=== PATIENT | female | born 1970 | race Caucasian/White ===

== ENCOUNTER → 2018-03-21 | Outpatient (CLI) | payer BC ==
--- NOTE | 2018-03-21 14:41 | KCIC ---
Bilateral diagnostic digital mammograms: Reason for examination: Right axillary lump. Comparison is made to previous studies dated 11/04/2014 and 02/26/2013 and previous left breast ultrasound dated 02/26/2013. Interpretation was made with the benefit of CAD. The skin and nipples show no abnormalities. No abnormal axillary lymph nodes are seen. The breast parenchyma is extremely dense. (Breast density: Category D.) There appears to be some new nodularity at the 12:00 B position of the left breast. In the area of clinical concern, a definite nodule is not seen but the breast parenchyma is extremely dense and a nodule could be obscured. Further evaluation with ultrasound will follow. There are no other dominant masses, suspicious calcifications or architectural distortion. Impression: Extremely dense breast parenchyma with no definite abnormality seen in the area of clinical concern however at nodule could be obscured by the dense parenchyma. New nodular density is suggested however at the 12:00 B position of the left breast. Bilateral ultrasound to follow. Your patient's mammogram demonstrates that she has dense breast tissue (breast density category C or D), which could hide abnormalities, and if she has other risk factors for breast cancer that have been identified, she might benefit from supplemental screening tests that may be suggested by you as her ordering physician. Dense breast tissue, in and of itself, is a relatively common condition. Therefore, this information is not provided to cause undue concern, but rather to raise your awareness and to promote discussion with your patient regarding the presence of other risk factors, in addition to dense breast tissue. Your patient's mammography results will be sent to her. BI-RAD Category 0: Incomplete. Needs additional imaging evaluation. Bilateral breast ultrasound: Comparison is made to previous left breast ultrasound dated 02/26/2013. Ultrasound examination was performed of the right breast in area of clinical concern and at the right axilla and in the left breast superiorly in the area of mammographic concern and at the left axilla. In the right breast at the 10:00 position 7 cm from the nipple, there is a hypoechoic slightly heterogeneous nodule measuring approximately 1.1 x 1.7 cm in greatest dimension. Further evaluation with biopsy is recommended. No other focal nodules are seen. No abnormal appearing lymph nodes are seen. In the left breast at the 12:00 position 4 cm from the nipple, there is a new 1.3 cm hypoechoic nodule. Further evaluation with biopsy is recommended. No other focal nodules are seen. No abnormal appearing lymph nodes are seen in the left axilla. IMPRESSION: 1.7 x 1.1 cm nodule at the 10:00 position 7 cm from the nipple in the right breast. 1.3 cm nodule at the 12:00 position of the left breast 4 cm from the nipple. Recommend ultrasound guided biopsies of both of these lesions. BI-RADS Category 4: Suspicious. These findings have been discussed with the patient and the patient's physician, Dr. Lizeth Malcolm, was notified with this report at 2:30 PM on 03/21/2018. "Our facility is accredited by the [employer] Mammography Program." This patient's information has been entered into a reminder system for the patient to be notified with the results of her examination and a target date for the next mammogram. Electronically signed by: Anna Segundo MD (03/21/2018 2:37 PM) [id number]
== END | disposition home or self-care (01) ==
LOC: KCIC MAMMO 12:52
PROVIDERS: ATTEND Family Medicine
DX: N63.11 Unspecified lump in the right breast, upper outer quadrant (principal); N63.21 Unspecified lump in the left breast, upper outer quadrant
CPT/HCPCS: 76641; 77066

== ENCOUNTER 2019-08-01 16:56 | Inpatient (IN) | payer BC ==
[~2019-08-01] VITALS: Ht 157.5 cm; Wt 44.5 kg
[~2019-08-01 16:56] MED LIST: cefOXitin SODIUM IV Push 2 GM VIAL. IVP ONE
--- NOTE | 2019-08-01 17:15 | NUR ---
Admitted to unit as direct admit, came from [facility]. Alert and oriented x's 4. C/o abdominal pain states "3" on scale 0-10. Oriented to room and controls. Side rails up x's 2 with call light in reach. Cont. monitor.
[2019-08-01] MEDS ORDERED: DOCUSATE SODIUM 100 MG CAPSULE. PO PRN (18:15)
[2019-08-01] MEDS ORDERED: ONDANSETRON PF 4 MG/2 ML VIAL. IV PRN (18:15)
[2019-08-01] MEDS ORDERED: ACETAMINOPHEN 325 MG TABLET. PO PRN (18:15)
[2019-08-01] MEDS ORDERED: ZOLPIDEM 5 MG TABLET. PO PRN (18:15)
--- NOTE | 2019-08-01 18:17 | PDOC1 ---
History and Physical Date of Admission Date of Admission DATE: 08/01/19 TIME: 18:11 Identification/Chief Complaint Chief Complaint abdominal pain Problems: (1) Colonic volvulus Source Source: Patient History of Present Illness History of Present Illness This is a very pleasant 48 year old CF with pmh of ADHD who presents with epigastric abdominal pain since this AM while working. 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 No nausea vomiting diarrhea fever chest pain or sob. no change in dietary habits. only sx was in 2004 when she had a hemorroidectomy. she initally presented from an outside hospital and transferred here after CT showing colonic volvulus. Dr. Ramos aware of patient. patient has no complaints. Past Medical History Past Medical History adhd Past Surgical History Past Surgical History hemorroidectomy Family History Family History reviewed and denies Social History Smoke: No ALCOHOL: none Drugs: None ROS Review of System CONSTITUTIONAL: No fever or chills EYES: No recent changes SKIN: No rash or itching CARDIOVASCULAR: No chest pain, syncope, palpitations, or edema RESPIRATORY: No SOB or cough GASTROINTESTINAL: No nausea, vomiting or abdominal pain NEUROLOGICAL: No headaches or weakness ENDOCRINE: No cold or heat intolerance GENITOURINARY: No urgency or frequency of urination MUSCULOSKELETAL: No back pain or joint pain LYMPHATICS: No enlarged lymph nodes PSYCHIATRIC: No anxiety or depression Physical Exam Physical Exam GENERAL: No apparent distress. Alert and oriented. HEENT: Head normocephalic, atraumatic. NECK: Supple LUNGS: Clear to auscultation. HEART: RRR, S1, S2 present, pulses intact ABDOMEN: Soft, positive bowel sounds. EXTREMITIES: No cyanosis or edema. NEUROLOGIC: Normal speech, normal tone PSYCHIATRIC: Normal affect, normal mood. SKIN: No ulceration. VTE Prophylaxis Ordered VTE Prophylaxis Devices: Yes VTE Pharmacological Prophylaxi: Yes Assessment/Plan Assessment/Plan ASSESSMENT Colonic Volvulus ADHD PLAN admit to non tele bed Gen Sx consulted NPO past midnight CLD tonight IVF in AM till seen by surgery dvt ppx: ambulatory full code RAIZA SANDOVAL MD Aug 01, 2019 18:17
[2019-08-01 19:00] VITALS: BP 103/53
[2019-08-01 20:20] LABS: HEMATOCRIT 36.2 % (36.0-47.0); HEMOGLOBIN 12.7 g/dL (12.0-15.5); RED BLOOD COUNT 3.89 x10^6/uL (3.50-5.40); RED CELL DISTRIBUTION WIDTH 13.2 % (11.5-14.5); WHITE BLOOD COUNT 7.5 x10^3/uL (4.0-11.0)
[2019-08-01] MEDS: IV NORMAL SALINE 1000ML BAG 1,000 ML IV SCH (20:36)
[2019-08-01 20:45] LABS: ALBUMIN 3.9 g/dL (3.4-5.0); ALBUMIN/GLOBULIN RATIO 1.5 (1.0-1.7); CALCIUM 8.7 mg/dL (8.5-10.1); CREATININE 0.7 mg/dL (0.6-1.0); GFR 90.1; POTASSIUM 3.3 mmol/L (3.5-5.1); TOTAL BILIRUBIN 1.1 mg/dL (0.2-1.0); TOTAL PROTEIN 6.5 g/dL (6.4-8.2)
[2019-08-01 23:08] VITALS: BP 106/65
[2019-08-02] VITALS (13 sets, daily range): BP systolic 88–109; BP diastolic 48–71
[2019-08-02] MEDS ORDERED: IV RINGERS,LACTATED 1000ML 1,000 ML IV SCH (07:40)
[2019-08-02] MEDS ORDERED: PROCHLORPERAZINE 10 MG/2 ML VIAL. IV PRN (07:45)
[2019-08-02] MEDS ORDERED: ONDANSETRON PF 4 MG/2 ML VIAL. IV PRN (07:45)
[2019-08-02] MEDS ORDERED: LIDOCAINE 1% PF 2 ML VIAL. ID PRN (07:45)
[2019-08-02] MEDS ORDERED: fentaNYL PF VIAL 100 MCG/2 ML VIAL IV PRN ×2 (07:45)
[2019-08-02] MEDS ORDERED: MORPHINE SULFATE 2 MG/ML VIAL. IV PRN (07:45)
[2019-08-02] MEDS ORDERED: HYDROmorphone 2 MG/ML VIAL IV PRN (07:45)
[2019-08-02] MEDS: POTASSIUM CHLORIDE 10MEQ 100 ML IV SCH ×2 (08:27→09:14)
[2019-08-02] MEDS: IV NORMAL SALINE 1000ML BAG 1,000 ML IV SCH ×2 (08:30→18:45)
[2019-08-02] MEDS: AMPHETAMINE PO SCH (09:00)
--- NOTE | 2019-08-02 10:46 | PDOC ---
PROGRESS NOTES Chief Complaint Chief Complaint ASSESSMENT Colonic Volvulus ADHD Hypokalemia PLAN Gen Sx consulted NPO till seen by sx continue IVF replace lytes dvt ppx: ambulatory full code pending sx eval Vitals Vitals Vital Signs Date Time Temp Pulse Resp B/P (MAP) Pulse Ox O2 Delivery O2 Flow Rate FiO2 08/02/19 08:00 Room Air 08/02/19 07:59 98.3 54 16 95/54 (68) 97 98.3 Labs LABS Laboratory Tests Test 08/01/19 20:10 White Blood Count 7.5 x10^3/uL (4.0-11.0) Red Blood Count 3.89 x10^6/uL (3.50-5.40) Hemoglobin 12.7 g/dL (12.0-15.5) Hematocrit 36.2 % (36.0-47.0) Mean Corpuscular Volume 93 fL (79-100) Mean Corpuscular Hemoglobin 33 pg (25-35) Mean Corpuscular Hemoglobin Concent 35 g/dL (31-37) Red Cell Distribution Width 13.2 % (11.5-14.5) Platelet Count 264 x10^3/uL (140-400) Sodium Level 141 mmol/L (136-145) Potassium Level 3.3 mmol/L (3.5-5.1) Chloride Level 105 mmol/L (98-107) Carbon Dioxide Level 24 mmol/L (21-32) Anion Gap 12 (6-14) Blood Urea Nitrogen 12 mg/dL (7-20) Creatinine 0.7 mg/dL (0.6-1.0) Estimated GFR (Cockcroft-Gault) 90.1 BUN/Creatinine Ratio 17 (6-20) Glucose Level 83 mg/dL (70-99) Calcium Level 8.7 mg/dL (8.5-10.1) Total Bilirubin 1.1 mg/dL (0.2-1.0) Aspartate Amino Transf (AST/SGOT) 23 U/L (15-37) Alanine Aminotransferase (ALT/SGPT) 23 U/L (14-59) Alkaline Phosphatase 51 U/L (46-116) Total Protein 6.5 g/dL (6.4-8.2) Albumin 3.9 g/dL (3.4-5.0) Albumin/Globulin Ratio 1.5 (1.0-1.7) Comment Review of Relevant I have reviewed the following items karson (where applicable) has been applied. Labs Laboratory Tests Test 08/01/19 20:10 White Blood Count 7.5 x10^3/uL (4.0-11.0) Red Blood Count 3.89 x10^6/uL (3.50-5.40) Hemoglobin 12.7 g/dL (12.0-15.5) Hematocrit 36.2 % (36.0-47.0) Mean Corpuscular Volume 93 fL (79-100) Mean Corpuscular Hemoglobin 33 pg (25-35) Mean Corpuscular Hemoglobin Concent 35 g/dL (31-37) Red Cell Distribution Width 13.2 % (11.5-14.5) Platelet Count 264 x10^3/uL (140-400) Sodium Level 141 mmol/L (136-145) Potassium Level 3.3 mmol/L (3.5-5.1) Chloride Level 105 mmol/L (98-107) Carbon Dioxide Level 24 mmol/L (21-32) Anion Gap 12 (6-14) Blood Urea Nitrogen 12 mg/dL (7-20) Creatinine 0.7 mg/dL (0.6-1.0) Estimated GFR (Cockcroft-Gault) 90.1 BUN/Creatinine Ratio 17 (6-20) Glucose Level 83 mg/dL (70-99) Calcium Level 8.7 mg/dL (8.5-10.1) Total Bilirubin 1.1 mg/dL (0.2-1.0) Aspartate Amino Transf (AST/SGOT) 23 U/L (15-37) Alanine Aminotransferase (ALT/SGPT) 23 U/L (14-59) Alkaline Phosphatase 51 U/L (46-116) Total Protein 6.5 g/dL (6.4-8.2) Albumin 3.9 g/dL (3.4-5.0) Albumin/Globulin Ratio 1.5 (1.0-1.7) Laboratory Tests Test 08/01/19 20:10 White Blood Count 7.5 x10^3/uL (4.0-11.0) Red Blood Count 3.89 x10^6/uL (3.50-5.40) Hemoglobin 12.7 g/dL (12.0-15.5) Hematocrit 36.2 % (36.0-47.0) Mean Corpuscular Volume 93 fL (79-100) Mean Corpuscular Hemoglobin 33 pg (25-35) Mean Corpuscular Hemoglobin Concent 35 g/dL (31-37) Red Cell Distribution Width 13.2 % (11.5-14.5) Platelet Count 264 x10^3/uL (140-400) Sodium Level 141 mmol/L (136-145) Potassium Level 3.3 mmol/L (3.5-5.1) Chloride Level 105 mmol/L (98-107) Carbon Dioxide Level 24 mmol/L (21-32) Anion Gap 12 (6-14) Blood Urea Nitrogen 12 mg/dL (7-20) Creatinine 0.7 mg/dL (0.6-1.0) Estimated GFR (Cockcroft-Gault) 90.1 BUN/Creatinine Ratio 17 (6-20) Glucose Level 83 mg/dL (70-99) Calcium Level 8.7 mg/dL (8.5-10.1) Total Bilirubin 1.1 mg/dL (0.2-1.0) Aspartate Amino Transf (AST/SGOT) 23 U/L (15-37) Alanine Aminotransferase (ALT/SGPT) 23 U/L (14-59) Alkaline Phosphatase 51 U/L (46-116) Total Protein 6.5 g/dL (6.4-8.2) Albumin 3.9 g/dL (3.4-5.0) Albumin/Globulin Ratio 1.5 (1.0-1.7) Medications Current Medications Ondansetron HCl (Zofran) 4 mg PRN Q4HRS PRN IV NAUSEA/VOMITING; Start 08/01/19 at 18:15 Zolpidem Tartrate (Ambien) 5 mg PRN QHS PRN PO INSOMNIA; Start 08/01/19 at 18:15 Docusate Sodium (Colace) 100 mg PRN BID PRN PO CONSTIPATION; Start 08/01/19 at 18:15 Acetaminophen (Tylenol) 650 mg PRN Q6HRS PRN PO fever or pain; Start 08/01/19 at 18:15 Non-Formulary Medication 1 ea DAILY PO ; Start 08/02/19 at 09:00; Status UNV Sodium Chloride 1,000 ml @ 75 mls/hr [id number] IV Last administered on 08/02/19at 08:30; Start 08/01/19 at 19:45 Cefoxitin Sodium (Mefoxin) 2 gm 1X PREOP ONCE IVP ; Start 08/01/19 at 08:00; Stop 08/01/19 at 19:47; Status DC Ondansetron HCl (Zofran) 4 mg PRN Q6HRS PRN IV NAUSEA/VOMITING; Start 08/02/19 at 07:45; Stop 08/03/19 at 07:44 Fentanyl Citrate (Fentanyl 2ml Vial) 25 mcg PRN Q5MIN PRN IV MILD PAIN 1-3; Start 08/02/19 at 07:45; Stop 08/03/19 at 07:44 Fentanyl Citrate (Fentanyl 2ml Vial) 50 mcg PRN Q5MIN PRN IV MODERATE TO SEVERE PAIN; Start 08/02/19 at 07:45; Stop 08/03/19 at 07:44 Morphine Sulfate (Morphine Sulfate) 1 mg PRN Q10MIN PRN IV SEVERE PAIN 7-10; Start 08/02/19 at 07:45; Stop 08/03/19 at 07:44 Ringer's Solution 1,000 ml @ 30 mls/hr Q24H IV ; Start 08/02/19 at 07:40; Stop 08/02/19 at 19:39 Lidocaine HCl (Xylocaine-Mpf 1% 2ml Vial) 2 ml PRN 1X PRN ID PRIOR TO IV START; Start 08/02/19 at 07:45; Stop 08/03/19 at 07:44 Hydromorphone HCl (Dilaudid) 0.5 mg PRN Q10MIN PRN IV SEV PAIN, Second choice; Start 08/02/19 at 07:45; Stop 08/03/19 at 07:44 Prochlorperazine Edisylate (Compazine) 5 mg PACU PRN PRN IV NAUSEA, MRX1; Start 08/02/19 at 07:45; Stop 08/03/19 at 07:44 Potassium Chloride/Water 100 ml @ 100 mls/hr Q1H IV Last administered on 08/02/19at 09:14; Start 08/02/19 at 08:00; Stop 08/02/19 at 09:59; Status DC Cefazolin Sodium/ Dextrose 50 ml @ 100 mls/hr 1X PREOP PRN IV PRIOR TO P ROCEDURE; Start 08/02/19 at 08:15 Vitals/I & O Vital Sign - Last 24 Hours 08/01/19 08/01/19 08/01/19 08/01/19 17:25 19:00 19:01 20:00 Temp 97.7 97.7 Pulse 60 Resp 18 B/P (MAP) 103/53 (70) Pulse Ox 100 O2 Delivery Room Air Room Air Room Air Room Air 08/01/19 08/02/19 08/02/19 08/02/19 23:08 04:11 07:59 08:00 Temp 98.4 98.2 98.3 98.4 98.2 98.3 Pulse 72 70 54 Resp 18 18 16 B/P (MAP) 106/65 (79) 88/48 (61) 95/54 (68) Pulse Ox 97 100 97 O2 Delivery Room Air Room Air Room Air Room Air RAIZA SANDOVAL MD Aug 02, 2019 10:46
[2019-08-02] MEDS ORDERED: POLYVINYL ALCOHOL 1.4% OPHTH SOLUTION 15ML BOTTLE. OU PRN (11:00)
--- NOTE | 2019-08-02 11:14 | PDOC2 ---
CONSULT Date of Consult Date of Consult DATE: 08/02/19 TIME: 11:09 Reason for Consult Reason for Consult: Cecal volvulus Referring Physician Referring Physician: Dr. Merritt Identification/Chief Complaint Chief Complaint LUQ pain Source Source: Chart review, Patient History of Present Illness Reason for Visit: 48 yo F with c/o acute onset LUQ pain yesterday. No previous episodes. No previous colonoscopy. Pt denies N/V, but early satiety. No changes in bowel habits. Feels somewhat better today if doesn't move much. Denies f/c. Past Medical History Cardiovascular: No pertinent hx Past Surgical History Past Surgical History: No pertinent history Family History Family History: No Significant Social History No ALCOHOL: none Drugs: None Current Medications Current Medications Current Medications Ondansetron HCl (Zofran) 4 mg PRN Q4HRS PRN IV NAUSEA/VOMITING; Start 08/01/19 at 18:15 Zolpidem Tartrate (Ambien) 5 mg PRN QHS PRN PO INSOMNIA; Start 08/01/19 at 18:15 Docusate Sodium (Colace) 100 mg PRN BID PRN PO CONSTIPATION; Start 08/01/19 at 18:15 Acetaminophen (Tylenol) 650 mg PRN Q6HRS PRN PO fever or pain; Start 08/01/19 at 18:15 Non-Formulary Medication 1 ea DAILY PO ; Start 08/02/19 at 09:00; Status UNV Sodium Chloride 1,000 ml @ 75 mls/hr [id number] IV Last administered on 08/02/19at 08:30; Start 08/01/19 at 19:45 Cefoxitin Sodium (Mefoxin) 2 gm 1X PREOP ONCE IVP ; Start 08/01/19 at 08:00; Stop 08/01/19 at 19:47; Status DC Ondansetron HCl (Zofran) 4 mg PRN Q6HRS PRN IV NAUSEA/VOMITING; Start 08/02/19 at 07:45; Stop 08/03/19 at 07:44 Fentanyl Citrate (Fentanyl 2ml Vial) 25 mcg PRN Q5MIN PRN IV MILD PAIN 1-3; Start 08/02/19 at 07:45; Stop 08/03/19 at 07:44 Fentanyl Citrate (Fentanyl 2ml Vial) 50 mcg PRN Q5MIN PRN IV MODERATE TO SEVERE PAIN; Start 08/02/19 at 07:45; Stop 08/03/19 at 07:44 Morphine Sulfate (Morphine Sulfate) 1 mg PRN Q10MIN PRN IV SEVERE PAIN 7-10; Start 08/02/19 at 07:45; Stop 08/03/19 at 07:44 Ringer's Solution 1,000 ml @ 30 mls/hr Q24H IV ; Start 08/02/19 at 07:40; Stop 08/02/19 at 19:39 Lidocaine HCl (Xylocaine-Mpf 1% 2ml Vial) 2 ml PRN 1X PRN ID PRIOR TO IV START; Start 08/02/19 at 07:45; Stop 08/03/19 at 07:44 Hydromorphone HCl (Dilaudid) 0.5 mg PRN Q10MIN PRN IV SEV PAIN, Second choice; Start 08/02/19 at 07:45; Stop 08/03/19 at 07:44 Prochlorperazine Edisylate (Compazine) 5 mg PACU PRN PRN IV NAUSEA, MRX1; Start 08/02/19 at 07:45; Stop 08/03/19 at 07:44 Potassium Chloride/Water 100 ml @ 100 mls/hr Q1H IV Last administered on 08/02/19at 09:14; Start 08/02/19 at 08:00; Stop 08/02/19 at 09:59; Status DC Cefazolin Sodium/ Dextrose 50 ml @ 100 mls/hr 1X PREOP PRN IV PRIOR TO PROCEDURE; Start 08/02/19 at 08:15 Artificial Tears (Artificial Tears) 1 drop PRN Q15MIN PRN OU DRY EYE; Start 08/02/19 at 11:00 Allergies Allergies: Coded Allergies: No Known Drug Allergies (Unverified , 08/01/19) ROS Gastrointestinal: Yes Abdominal Pain Physical Exam General: Alert, Oriented X3, Cooperative, mild distress HEENT: Atraumatic Lungs: Normal air movement Abdomen: Soft, Other (mild TTP LUQ, no masses) Extremities: No clubbing, No cyanosis Skin: No rashes, No breakdown Neuro: Normal speech, Sensation intact Psych/Mental Status: Mental status NL, Mood NL Vitals VITALS Vital Signs Date Time Temp Pulse Resp B/P (MAP) Pulse Ox O2 Delivery O2 Flow Rate FiO2 08/02/19 08:00 Room Air 4/25/20 07:59 98.3 54 16 95/54 (68) 97 98.3 Labs Labs Laboratory Tests Test 08/01/19 20:10 White Blood Count 7.5 x10^3/uL (4.0-11.0) Red Blood Count 3.89 x10^6/uL (3.50-5.40) Hemoglobin 12.7 g/dL (12.0-15.5) Hematocrit 36.2 % (36.0-47.0) Mean Corpuscular Volume 93 fL (79-100) Mean Corpuscular Hemoglobin 33 pg (25-35) Mean Corpuscular Hemoglobin Concent 35 g/dL (31-37) Red Cell Distribution Width 13.2 % (11.5-14.5) Platelet Count 264 x10^3/uL (140-400) Sodium Level 141 mmol/L (136-145) Potassium Level 3.3 mmol/L (3.5-5.1) Chloride Level 105 mmol/L (98-107) Carbon Dioxide Level 24 mmol/L (21-32) Anion Gap 12 (6-14) Blood Urea Nitrogen 12 mg/dL (7-20) Creatinine 0.7 mg/dL (0.6-1.0) Estimated GFR (Cockcroft-Gault) 90.1 BUN/Creatinine Ratio 17 (6-20) Glucose Level 83 mg/dL (70-99) Calcium Level 8.7 mg/dL (8.5-10.1) Total Bilirubin 1.1 mg/dL (0.2-1.0) Aspartate Amino Transf (AST/SGOT) 23 U/L (15-37) Alanine Aminotransferase (ALT/SGPT) 23 U/L (14-59) Alkaline Phosphatase 51 U/L (46-116) Total Protein 6.5 g/dL (6.4-8.2) Albumin 3.9 g/dL (3.4-5.0) Albumin/Globulin Ratio 1.5 (1.0-1.7) Laboratory Tests Test 08/01/19 20:10 White Blood Count 7.5 x10^3/uL (4.0-11.0) Red Blood Count 3.89 x10^6/uL (3.50-5.40) Hemoglobin 12.7 g/dL (12.0-15.5) Hematocrit 36.2 % (36.0-47.0) Mean Corpuscular Volume 93 fL (79-100) Mean Corpuscular Hemoglobin 33 pg (25-35) Mean Corpuscular Hemoglobin Concent 35 g/dL (31-37) Red Cell Distribution Width 13.2 % (11.5-14.5) Platelet Count 264 x10^3/uL (140-400) Sodium Level 141 mmol/L (136-145) Potassium Level 3.3 mmol/L (3.5-5.1) Chloride Level 105 mmol/L (98-107) Carbon Dioxide Level 24 mmol/L (21-32) Anion Gap 12 (6-14) Blood Urea Nitrogen 12 mg/dL (7-20) Creatinine 0.7 mg/dL (0.6-1.0) Estimated GFR (Cockcroft-Gault) 90.1 BUN/Creatinine Ratio 17 (6-20) Glucose Level 83 mg/dL (70-99) Calcium Level 8.7 mg/dL (8.5-10.1) Total Bilirubin 1.1 mg/dL (0.2-1.0) Aspartate Amino Transf (AST/SGOT) 23 U/L (15-37) Alanine Aminotransferase (ALT/SGPT) 23 U/L (14-59) Alkaline Phosphatase 51 U/L (46-116) Total Protein 6.5 g/dL (6.4-8.2) Albumin 3.9 g/dL (3.4-5.0) Albumin/Globulin Ratio 1.5 (1.0-1.7) Images Images Outside CT c/w cecal volvulus, no evidence of bowel compromise. Assessment/Plan Assessment/Plan Cecal volvulus will plan laparoscopic versus open ileocolic resection. R/R/B/A d/w pt. Risks, including, but not limited to: bleeding, infection, damage to surrounding structures, risk of anesthesia, risk of open, risk of anastomotic leak, risk of . She appears to understand, her questions are answered and she elects to proceed. Thank you for allowing participation in care of pleasant patient. WILFRID VILLEDA MD Aug 02, 2019 11:14
[2019-08-02] MEDS ORDERED: GLYCOPYRROLATE 1 MG/5 ML VIAL. ONE (13:09)
[2019-08-02] MEDS ORDERED: ROCURONIUM 50 MG/5 ML VIAL. ONE (13:09)
[2019-08-02] MEDS ORDERED: SEVOFLURANE > 120 MINUTES. IH ONE (13:09)
[2019-08-02] MEDS ORDERED: fentaNYL PF VIAL 100 MCG/2 ML VIAL ONE (13:09)
[2019-08-02] MEDS ORDERED: NEOSTIGMINE METHYLSULFATE 5 MG/5 ML SYRINGE. ONE (13:09)
[2019-08-02] MEDS ORDERED: MIDAZOLAM HCL/PF 2 MG/2 ML VIAL. ONE (13:09)
[2019-08-02] MEDS ORDERED: LIDOCAINE 2% PF 5 ML VIAL. ONE (13:10)
[2019-08-02] MEDS ORDERED: PROPOFOL 20 ML IV ONE (13:10)
[2019-08-02] MEDS ORDERED: DEXAMETHASONE SOD PHOS 4 MG/ML VIAL ONE (13:10)
[2019-08-02] MEDS ORDERED: ONDANSETRON PF 4 MG/2 ML VIAL. ONE (13:10)
[2019-08-02] MEDS ORDERED: KETOROLAC 30 MG/ML VIAL. ONE (13:14)
[2019-08-02] MEDS ORDERED: ceFAZolin 2GM PREMIX 2 GM/50 ML BAG IV ONE (14:00)
[2019-08-02] MEDS ORDERED: cefOXitin SODIUM IV Push 2 GM VIAL. IVP ONE (15:54)
[2019-08-02] MEDS ORDERED: SUCCINYLCHOLINE 200 MG/10 ML VIAL. ONE (16:00)
[2019-08-02] MEDS ORDERED: BUPIVACAINE-EPI 0.5%-1:200000 MPF 30 ML VIAL. ONE (16:16)
[2019-08-02] MEDS ORDERED: ONDANSETRON PF 4 MG/2 ML VIAL. IVP PRN (17:30)
[2019-08-02] MEDS ORDERED: NALOXONE 0.4 MG/ML VIAL. IV PRN (17:30)
[2019-08-02] MEDS ORDERED: 0.9 % SODIUM CHLORIDE 10 ML DISP.SYRIN. IV PRN (17:30)
--- NOTE | 2019-08-02 17:38 | PDOC4 ---
OPERATIVE NOTE Date: Date: Aug 02, 2019 Pre-Op Diagnosis: Cecal volvulus Post-Op Diagnosis: same Procedure Performed: laparoscopic ileocolic resection Surgeon: Will Villeda Anesthesia Type: GETA plus local Blood Loss: 50 Specimans Obtained: ileocolic resection Findings: mobile cecum, currently reduced but with inflamed bowel, no perforation Normal liver, gallbladder, small bowel, remaining colon, gynecologic structure, right ureter, pancreas and duodenum Complications: none Operative Note: After obtaining informed consent, patient was taken to OR, induced under GETA and prepped in the usual fashion. 5 mm port placed LLQ, suprapubic and epigastric, all under laparoscopic guidance. Abdominal cavity was explored and noted as above. Brief terminal ileum attachments and hepatic flexure attachments were taken with ligasure. Right colon easily mobilized. Right ureter and duodenum were fully visualized and maintained without injury in this petite patient. No other abnormalities noted. Transverse incision was made in RLQ, wound retractor placed and ileocolic area was eviscerated. Side to side stapled anastomosis created with EDU 75. End was sealed with EDU 75. Mesentery taken with ligasure device. Specimen sent to pathology for evaluation. Mesentery repaired with 3 0 vicryl. Anastomosis noted to be patent, under no tension, completely viable and without leakage. Bowel returned to abdominal cavity. Peritoneum repaired with 0 vicryl. Anterior fascia repaired with 0 PDS. Pneumoperitoneum reestablished and abdominal cavity explored. Copious irrigation. No evidence of bleeding or other pathology. Ports removed without bleeding. Skin repaired with 3 0 vicryl and 4 0 monocryl. Dressing placed. Patient tolerated procedure well and sent to PACU in stable condition. All counts correct. Wound class is 3. WILFRID VILLEDA MD Aug 02, 2019 17:38
--- NOTE | 2019-08-02 17:52 | RAD ---
One view lower abdomen pelvis 5:16 PM HISTORY: Postop colon resection Portable supine AP view abdomen pelvis There is air within multiple loops of bowel. There is some extraluminal air inferiorly and laterally in the pelvis. There is a suture line seen in the left hemipelvis. There is no unexpected radiopaque foreign body identified. IMPRESSION: 1. Nonspecific bowel gas pattern. 2. Air which could be intraperitoneal or retroperitoneal is likely postsurgical. Electronically signed by: Toi Minaya III, MD (08/02/2019 5:50 PM) [id number]
[2019-08-02] MEDS: MORPHINE SULFATE/PF 30 ML IV PRN (18:02)
[2019-08-02] MEDS: IV RINGERS,LACTATED 1000ML 1,000 ML IV SCH ×2 (18:45→23:45)
--- NOTE | 2019-08-02 23:26 | NUR ---
Schedule 1726 LR and NS was not administered at this time due to current LR bag still infusing. LR bag is attached to morphine T[employer] as the carrier. Will continue to monitor pt closely.
[2019-08-03 03:00] VITALS: BP 94/53
[2019-08-03 04:55] LABS: BASO % 0 % (0-3); EOS % 0 % (0-3); HEMATOCRIT 34.3 % (36.0-47.0); HEMOGLOBIN 11.7 g/dL (12.0-15.5); LYMPH % 13 % (24-48); MEAN CORPUSCULAR HEMOGLOBIN 32 pg (25-35); MEAN CORPUSCULAR HGB CONC 34 g/dL (31-37); MEAN CORPUSCULAR VOLUME 95 fL (79-100); MONO # 0.3 x10^3/uL (0.0-1.1); MONO % 4 % (0-9); NEUT # 6.2 x10^3/uL (1.8-7.7); NEUT % 83 % (31-73); PLATELET COUNT 223 x10^3/uL (140-400); RED BLOOD COUNT 3.63 x10^6/uL (3.50-5.40); RED CELL DISTRIBUTION WIDTH 13.1 % (11.5-14.5); WHITE BLOOD COUNT 7.6 x10^3/uL (4.0-11.0)
[2019-08-03 05:11] LABS: CALCIUM 8.4 mg/dL (8.5-10.1); CREATININE 0.6 mg/dL (0.6-1.0); GFR 107.6; POTASSIUM 3.9 mmol/L (3.5-5.1)
[2019-08-03] MEDS: ENOXAPARIN 40 MG/0.4 ML SYRINGE. SQ SCH (05:57)
[2019-08-03] MEDS: AMPHETAMINE PO SCH (07:51)
[2019-08-03 07:59] VITALS: BP 97/61
[2019-08-03] MEDS: IV RINGERS,LACTATED 1000ML 1,000 ML IV SCH ×2 (09:31→19:28)
[2019-08-03 10:50] VITALS: BP 95/48
--- NOTE | 2019-08-03 11:22 | PDOC ---
PROGRESS NOTES Chief Complaint Chief Complaint ASSESSMENT Colonic Volvulus pod # 1 ADHD Hypokalemia PLAN Gen Sx following NPO continue IVF replace lytes dvt ppx: ambulatory full code Date: pod # 1 Date: Aug 02, 2019 Pre-Op Diagnosis: Cecal volvulus Post-Op Diagnosis: same Procedure Performed: laparoscopic ileocolic resection Surgeon: Will Ramos Anesthesia Type: GETA plus local Blood Loss: 50 Specimans Obtained: ileocolic resection Findings: mobile cecum, currently reduced but with inflamed bowel, no perforation Normal liver, gallbladder, small bowel, remaining colon, gynecologic structure, right ureter, pancreas and duodenum Complications: Vitals Vitals Vital Signs Date Time Temp Pulse Resp B/P (MAP) Pulse Ox O2 Delivery O2 Flow Rate FiO2 08/03/19 10:50 98.6 80 18 95/48 (64) 98 Room Air 98.6 08/02/19 17:53 8 Physical Exam General: Alert, Oriented X3, Cooperative, mild distress Lungs: Clear Abdomen: Soft, Other (mild TTP LUQ, no masses) Extremities: No clubbing, No cyanosis Skin: No rashes, No breakdown Labs LABS One view lower abdomen pelvis 5:16 PM HISTORY: Postop colon resection Portable supine AP view abdomen pelvis There is air within multiple loops of bowel. There is some extraluminal air inferiorly and laterally in the pelvis. There is a suture line seen in the left hemipelvis. There is no unexpected radiopaque foreign body identified. IMPRESSION: 1. Nonspecific bowel gas pattern. 2. Air which could be intraperitoneal or retroperitoneal is likely postsurgical. Electronically signed by: Jie Minaya III, MD (08/02/2019 5:50 PM) [id number] DICTATED and SIGNED BY: JIE MINAYA III, MD DATE: 08/02/19 833 Laboratory Tests Test 08/03/19 04:10 White Blood Count 7.6 x10^3/uL (4.0-11.0) Red Blood Count 3.63 x10^6/uL (3.50-5.40) Hemoglobin 11.7 g/dL (12.0-15.5) Hematocrit 34.3 % (36.0-47.0) Mean Corpuscular Volume 95 fL (79-100) Mean Corpuscular Hemoglobin 32 pg (25-35) Mean Corpuscular Hemoglobin Concent 34 g/dL (31-37) Red Cell Distribution Width 13.1 % (11.5-14.5) Platelet Count 223 x10^3/uL (140-400) Neutrophils (%) (Auto) 83 % (31-73) Lymphocytes (%) (Auto) 13 % (24-48) Monocytes (%) (Auto) 4 % (0-9) Eosinophils (%) (Auto) 0 % (0-3) Basophils (%) (Auto) 0 % (0-3) Neutrophils # (Auto) 6.2 x10^3/uL (1.8-7.7) Lymphocytes # (Auto) 1.0 x10^3/uL (1.0-4.8) Monocytes # (Auto) 0.3 x10^3/uL (0.0-1.1) Eosinophils # (Auto) 0.0 x10^3/uL (0.0-0.7) Basophils # (Auto) 0.0 x10^3/uL (0.0-0.2) Sodium Level 140 mmol/L (136-145) Potassium Level 3.9 mmol/L (3.5-5.1) Chloride Level 106 mmol/L (98-107) Carbon Dioxide Level 18 mmol/L (21-32) Anion Gap 16 (6-14) Blood Urea Nitrogen 14 mg/dL (7-20) Creatinine 0.6 mg/dL (0.6-1.0) Estimated GFR (Cockcroft-Gault) 107.6 Glucose Level 83 mg/dL (70-99) Calcium Level 8.4 mg/dL (8.5-10.1) Comment Review of Relevant I have reviewed the following items karson (where applicable) has been applied. Labs Laboratory Tests Test 08/01/19 20:10 08/02/19 11:20 08/03/19 04:10 White Blood Count 7.5 x10^3/uL (4.0-11.0) 7.6 x10^3/uL (4.0-11.0) Red Blood Count 3.89 x10^6/uL (3.50-5.40) 3.63 x10^6/uL (3.50-5.40) Hemoglobin 12.7 g/dL (12.0-15.5) 11.7 g/dL (12.0-15.5) Hematocrit 36.2 % (36.0-47.0) 34.3 % (36.0-47.0) Mean Corpuscular Volume 93 fL (79-100) 95 fL (79-100) Mean Corpuscular Hemoglobin 33 pg (25-35) 32 pg (25-35) Mean Corpuscular Hemoglobin Concent 35 g/dL (31-37) 34 g/dL (31-37) Red Cell Distribution Width 13.2 % (11.5-14.5) 13.1 % (11.5-14.5) Platelet Count 264 x10^3/uL (140-400) 223 x10^3/uL (140-400) Sodium Level 141 mmol/L (136-145) 140 mmol/L (136-145) Potassium Level 3.3 mmol/L (3.5-5.1) 3.9 mmol/L (3.5-5.1) 3.9 mmol/L (3.5-5.1) Chloride Level 105 mmol/L (98-107) 106 mmol/L (98-107) Carbon Dioxide Level 24 mmol/L (21-32) 18 mmol/L (21-32) Anion Gap 12 (6-14) 16 (6-14) Blood Urea Nitrogen 12 mg/dL (7-20) 14 mg/dL (7-20) Creatinine 0.7 mg/dL (0.6-1.0) 0.6 mg/dL (0.6-1.0) Estimated GFR (Cockcroft-Gault) 90.1 107.6 BUN/Creatinine Ratio 17 (6-20) Glucose Level 83 mg/dL (70-99) 83 mg/dL (70-99) Calcium Level 8.7 mg/dL (8.5-10.1) 8.4 mg/dL (8.5-10.1) Total Bilirubin 1.1 mg/dL (0.2-1.0) Aspartate Amino Transf (AST/SGOT) 23 U/L (15-37) Alanine Aminotransferase (ALT/SGPT) 23 U/L (14-59) Alkaline Phosphatase 51 U/L (46-116) Total Protein 6.5 g/dL (6.4-8.2) Albumin 3.9 g/dL (3.4-5.0) Albumin/Globulin Ratio 1.5 (1.0-1.7) Neutrophils (%) (Auto) 83 % (31-73) Lymphocytes (%) (Auto) 13 % (24-48) Monocytes (%) (Auto) 4 % (0-9) Eosinophils (%) (Auto) 0 % (0-3) Basophils (%) (Auto) 0 % (0-3) Neutrophils # (Auto) 6.2 x10^3/uL (1.8-7.7) Lymphocytes # (Auto) 1.0 x10^3/uL (1.0-4.8) Monocytes # (Auto) 0.3 x10^3/uL (0.0-1.1) Eosinophils # (Auto) 0.0 x10^3/uL (0.0-0.7) Basophils # (Auto) 0.0 x10^3/uL (0.0-0.2) Laboratory Tests Test 08/03/19 04:10 White Blood Count 7.6 x10^3/uL (4.0-11.0) Red Blood Count 3.63 x10^6/uL (3.50-5.40) Hemoglobin 11.7 g/dL (12.0-15.5) Hematocrit 34.3 % (36.0-47.0) Mean Corpuscular Volume 95 fL (79-100) Mean Corpuscular Hemoglobin 32 pg (25-35) Mean Corpuscular Hemoglobin Concent 34 g/dL (31-37) Red Cell Distribution Width 13.1 % (11.5-14.5) Platelet Count 223 x10^3/uL (140-400) Neutrophils (%) (Auto) 83 % (31-73) Lymphocytes (%) (Auto) 13 % (24-48) Monocytes (%) (Auto) 4 % (0-9) Eosinophils (%) (Auto) 0 % (0-3) Basophils (%) (Auto) 0 % (0-3) Neutrophils # (Auto) 6.2 x10^3/uL (1.8-7.7) Lymphocytes # (Auto) 1.0 x10^3/uL (1.0-4.8) Monocytes # (Auto) 0.3 x10^3/uL (0.0-1.1) Eosinophils # (Auto) 0.0 x10^3/uL (0.0-0.7) Basophils # (Auto) 0.0 x10^3/uL (0.0-0.2) Sodium Level 140 mmol/L (136-145) Potassium Level 3.9 mmol/L (3.5-5.1) Chloride Level 106 mmol/L (98-107) Carbon Dioxide Level 18 mmol/L (21-32) Anion Gap 16 (6-14) Blood Urea Nitrogen 14 mg/dL (7-20) Creatinine 0.6 mg/dL (0.6-1.0) Estimated GFR (Cockcroft-Gault) 107.6 Glucose Level 83 mg/dL (70-99) Calcium Level 8.4 mg/dL (8.5-10.1) Medications Current Medications Ondansetron HCl (Zofran) 4 mg PRN Q4HRS PRN IV NAUSEA/VOMITING; Start 08/01/19 at 18:15 Zolpidem Tartrate (Ambien) 5 mg PRN QHS PRN PO INSOMNIA; Start 08/01/19 at 18:15 Docusate Sodium (Colace) 100 mg PRN BID PRN PO CONSTIPATION; Start 08/01/19 at 18:15 Acetaminophen (Tylenol) 650 mg PRN Q6HRS PRN PO fever or pain; Start 08/01/19 at 18:15 Non-Formulary Medication 1 ea DAILY PO ; Start 08/02/19 at 09:00; Status UNV Sodium Chloride 1,000 ml @ 75 mls/hr [id number] IV Last administered on 08/02/19at 08:30; Start 08/01/19 at 19:45; Stop 08/02/19 at 19:30; Status DC Cefoxitin Sodium (Mefoxin) 2 gm 1X PREOP ONCE IVP Last administered on 08/01/19at 15:57; Start 08/01/19 at 08:00; Stop 08/01/19 at 19:47; Status DC Ondansetron HCl (Zofran) 4 mg PRN Q6HRS PRN IV NAUSEA/VOMITING; Start 08/02/19 at 07:45; Stop 08/03/19 at 07:44; Status DC Fentanyl Citrate (Fentanyl 2ml Vial) 25 mcg PRN Q5MIN PRN IV MILD PAIN 1-3; Start 08/02/19 at 07:45; Stop 08/03/19 at 07:44; Status DC Fentanyl Citrate (Fentanyl 2ml Vial) 50 mcg PRN Q5MIN PRN IV MODERATE TO SEVERE PAIN; Start 08/02/19 at 07:45; Stop 08/03/19 at 07:44; Status DC Morphine Sulfate (Morphine Sulfate) 1 mg PRN Q10MIN PRN IV SEVERE PAIN 7-10; Start 08/02/19 at 07:45; Stop 08/03/19 at 07:44; Status DC Ringer's Solution 1,000 ml @ 30 mls/hr Q24H IV ; Start 08/02/19 at 07:40; Stop 08/02/19 at 19:30; Status DC Lidocaine HCl (Xylocaine-Mpf 1% 2ml Vial) 2 ml PRN 1X PRN ID PRIOR TO IV START; Start 08/02/19 at 07:45; Stop 08/03/19 at 07:44; Status DC Hydromorphone HCl (Dilaudid) 0.5 mg PRN Q10MIN PRN IV SEV PAIN, Second choice; Start 08/02/19 at 07:45; Stop 08/03/19 at 07:44; Status DC Prochlorperazine Edisylate (Compazine) 5 mg PACU PRN PRN IV NAUSEA, MRX1; Start 08/02/19 at 07:45; Stop 08/03/19 at 07:44; Status DC Potassium Chloride/Water 100 ml @ 100 mls/hr Q1H IV Last administered on 08/02/19at 09:14; Start 08/02/19 at 08:00; Stop 08/02/19 at 09:59; Status DC Cefazolin Sodium/ Dextrose 50 ml @ 100 mls/hr 1X PREOP PRN IV PRIOR TO PROCE DURE; Start 08/02/19 at 08:15 Artificial Tears (Artificial Tears) 1 drop PRN Q15MIN PRN OU DRY EYE Last administered on 08/02/19at 11:35; Start 08/02/19 at 11:00 Sevoflurane (Ultane) 90 ml STK-MED ONCE IH ; Start 08/02/19 at 13:09; Stop 08/02/19 at 13:09; Status DC Rocuronium [place] (Zemuron) 50 mg STK-MED ONCE .ROUTE ; Start 08/02/19 at 13:09; Stop 08/02/19 at 13:09; Status DC Fentanyl Citrate (Fentanyl 2ml Vial) 100 mcg STK-MED ONCE .ROUTE ; Start 08/02/19 at 13:09; Stop 08/02/19 at 13:09; Status DC Neostigmine [place] (Neostigmine Methylsulfate) 5 mg STK-MED ONCE .ROUTE ; Start 08/02/19 at 13:09; Stop 08/02/19 at 13:10; Status DC Midazolam HCl (Versed) 2 mg STK-MED ONCE .ROUTE ; Start 08/02/19 at 13:09; Stop 08/02/19 at 13:10; Status DC Glycopyrrolate (Robinul) 1 mg STK-MED ONCE .ROUTE ; Start 08/02/19 at 13:09; Stop 08/02/19 at 13:10; Status DC Propofol 20 ml @ As Directed STK-MED ONCE IV ; Start 08/02/19 at 13:10; Stop 08/02/19 at 13:10; Status DC Dexamethasone Sodium Phosphate (Decadron) 4 mg STK-MED ONCE .ROUTE ; Start 08/02/19 at 13:10; Stop 08/02/19 at 13:10; Status DC Ondansetron HCl (Zofran) 4 mg STK-MED ONCE .ROUTE ; Start 08/02/19 at 13:10; Stop 08/02/19 at 13:10; Status DC Lidocaine HCl (Lidocaine Pf 2% Vial) 5 ml STK-MED ONCE .ROUTE ; Start 08/02/19 at 13:10; Stop 08/02/19 at 13:10; Status DC Ketorolac Tromethamine (Toradol 30mg Vial) 30 mg STK-MED ONCE .ROUTE ; Start 08/02/19 at 13:14; Stop 08/02/19 at 13:15; Status DC Cefoxitin Sodium (Mefoxin) 2 gm STK-MED ONCE IVP ; Start 08/02/19 at 15:54; Stop 08/02/19 at 15:54; Status DC Succinylcholine Chloride (Anectine) 200 mg STK-MED ONCE .ROUTE ; Start 08/02/19 at 16:00; Stop 08/02/19 at 16:01; Status DC Bupivacaine HCl/ Epinephrine Bitart (Sensorcain-Epi 0.5%-1:[id number] Mpf) 30 ml STK-MED ONCE .ROUTE Last administered on 08/02/19at 16:18; Start 08/02/19 at 16:16; Stop 08/02/19 at 16:16; Status DC Enoxaparin Sodium (Lovenox 40mg Syringe) 40 mg Q24H SQ Last administered on 08/03/19at 05:57; Start 08/03/19 at 06:00 Sodium Chloride (Normal Saline Flush) 3 ml QSHIFT PRN IV AFTER MEDS AND BLOOD DRAWS; Start 08/02/19 at 17:30 Ringer's Solution 1,000 ml @ 100 mls/hr Q10H IV Last administered on 08/03/19at 09:31; Start 08/02/19 at 17:26 Naloxone HCl (Narcan) 0.4 mg PRN Q2MIN PRN IV SEE INSTRUCTIONS; Start 08/02/19 at 17:30 Sodium Chloride 1,000 ml @ 25 mls/hr Q24H IV ; Start 08/02/19 at 17:26 Morphine Sulfate 30 ml @ 0 mls/hr CONT PRN PRN IV PER PROTOCOL Last administered on 08/02/19at 18:02; Start 08/02/19 at 17:30 Ondansetron HCl (Zofran) 4 mg PRN Q6HRS PRN IVP NAUESA, 1ST CHOICE; Start 08/02/19 at 17:30 Vitals/I & O Vital Sign - Last 24 Hours 08/02/19 08/02/19 08/02/19 08/02/19 11:59 15:26 15:59 17:38 Temp 98.0 99.1 98.1 98.4 98.0 99.1 98.1 98.4 Pulse 56 65 61 72 Resp 16 18 18 14 B/P (MAP) 109/71 (84) 97/66 99/61 (74) 106/58 Pulse Ox 100 100 96 100 O2 Delivery Room Air Room Air Room Air Room Air O2 Flow Rate 8 08/02/19 08/02/19 08/02/19 08/02/19 17:38 17:53 18:02 18:08 Pulse 45 56 Resp 17 18 16 B/P (MAP) 98/62 91/62 Pulse Ox 100 99 98 O2 Delivery Mask Simple Mask Room Air Room Air O2 Flow Rate 8 8 08/02/19 08/02/19 08/02/19 08/02/19 18:09 18:45 19:00 19:00 Temp 97.6 97.6 Pulse 55 55 Resp 16 16 B/P (MAP) 107/55 (72) 101/61 (74) Pulse Ox 96 94 97 O2 Delivery Room Air Room Air Room Air Room Air 08/02/19 08/02/19 08/02/19 08/02/19 19:15 19:30 19:59 20:00 Temp 97.6 97.6 Pulse 56 57 55 Resp 16 16 16 B/P (MAP) 99/60 (73) 99/60 (73) 101/61 (74) Pulse Ox 98 97 98 O2 Delivery Room Air Room Air Room Air Room Air 08/02/19 08/02/19 08/02/19 08/02/19 20:30 21:00 22:00 23:00 Temp 98.0 98.0 Pulse 64 58 80 76 Resp 16 16 16 16 B/P (MAP) 99/63 (75) 104/63 (77) 98/53 (68) 98/53 (68) Pulse Ox 97 96 96 96 O2 Delivery Room Air Room Air Room Air Room Air 08/03/19 08/03/19 08/03/19 08/03/19 03:00 07:59 08:00 10:50 Temp 98.2 97.5 98.6 98.2 97.5 98.6 Pulse 57 54 80 Resp 16 18 18 B/P (MAP) 94/53 (67) 97/61 (73) 95/48 (64) Pulse Ox 98 97 98 O2 Delivery Room Air Room Air Room Air Room Air Intake and Output 08/02/19 08/02/19 08/03/19 14:59 22:59 06:59 Intake Total 965 ml 0 ml Output Total 125 ml Balance 840 ml 0 ml YARELIS MATOS MD Aug 03, 2019 11:22
--- NOTE | 2019-08-03 13:10 | PDOC ---
SURGICAL PROGRESS NOTE Subjective Pt with some RLQ incisional pain, otherwise doing well, no N/V, passing some flatus Vital Signs Vital Signs Date Time Temp Pulse Resp B/P (MAP) Pulse Ox O2 Delivery O2 Flow Rate FiO2 08/03/19 10:50 98.6 80 18 95/48 (64) 98 Room Air 98.6 08/02/19 17:53 8 I&O Intake and Output 08/03/19 07:00 Intake Total 965 ml Output Total 125 ml Balance 840 ml Intake Oral 15 ml IV Total 950 ml Output Urine Total 75 ml Estimated Blood Loss 50 ml General: Alert, Oriented X3, Cooperative, No acute distress Abdomen: Soft, No tenderness Labs Laboratory Tests Test 08/01/19 20:10 08/02/19 11:20 08/03/19 04:10 White Blood Count 7.5 x10^3/uL (4.0-11.0) 7.6 x10^3/uL (4.0-11.0) Red Blood Count 3.89 x10^6/uL (3.50-5.40) 3.63 x10^6/uL (3.50-5.40) Hemoglobin 12.7 g/dL (12.0-15.5) 11.7 g/dL (12.0-15.5) Hematocrit 36.2 % (36.0-47.0) 34.3 % (36.0-47.0) Mean Corpuscular Volume 93 fL (79-100) 95 fL (79-100) Mean Corpuscular Hemoglobin 33 pg (25-35) 32 pg (25-35) Mean Corpuscular Hemoglobin Concent 35 g/dL (31-37) 34 g/dL (31-37) Red Cell Distribution Width 13.2 % (11.5-14.5) 13.1 % (11.5-14.5) Platelet Count 264 x10^3/uL (140-400) 223 x10^3/uL (140-400) Sodium Level 141 mmol/L (136-145) 140 mmol/L (136-145) Potassium Level 3.3 mmol/L (3.5-5.1) 3.9 mmol/L (3.5-5.1) 3.9 mmol/L (3.5-5.1) Chloride Level 105 mmol/L (98-107) 106 mmol/L (98-107) Carbon Dioxide Level 24 mmol/L (21-32) 18 mmol/L (21-32) Anion Gap 12 (6-14) 16 (6-14) Blood Urea Nitrogen 12 mg/dL (7-20) 14 mg/dL (7-20) Creatinine 0.7 mg/dL (0.6-1.0) 0.6 mg/dL (0.6-1.0) Estimated GFR (Cockcroft-Gault) 90.1 107.6 BUN/Creatinine Ratio 17 (6-20) Glucose Level 83 mg/dL (70-99) 83 mg/dL (70-99) Calcium Level 8.7 mg/dL (8.5-10.1) 8.4 mg/dL (8.5-10.1) Total Bilirubin 1.1 mg/dL (0.2-1.0) Aspartate Amino Transf (AST/SGOT) 23 U/L (15-37) Alanine Aminotransferase (ALT/SGPT) 23 U/L (14-59) Alkaline Phosphatase 51 U/L (46-116) Total Protein 6.5 g/dL (6.4-8.2) Albumin 3.9 g/dL (3.4-5.0) Albumin/Globulin Ratio 1.5 (1.0-1.7) Neutrophils (%) (Auto) 83 % (31-73) Lymphocytes (%) (Auto) 13 % (24-48) Monocytes (%) (Auto) 4 % (0-9) Eosinophils (%) (Auto) 0 % (0-3) Basophils (%) (Auto) 0 % (0-3) Neutrophils # (Auto) 6.2 x10^3/uL (1.8-7.7) Lymphocytes # (Auto) 1.0 x10^3/uL (1.0-4.8) Monocytes # (Auto) 0.3 x10^3/uL (0.0-1.1) Eosinophils # (Auto) 0.0 x10^3/uL (0.0-0.7) Basophils # (Auto) 0.0 x10^3/uL (0.0-0.2) Laboratory Tests Test 08/03/19 04:10 White Blood Count 7.6 x10^3/uL (4.0-11.0) Red Blood Count 3.63 x10^6/uL (3.50-5.40) Hemoglobin 11.7 g/dL (12.0-15.5) Hematocrit 34.3 % (36.0-47.0) Mean Corpuscular Volume 95 fL (79-100) Mean Corpuscular Hemoglobin 32 pg (25-35) Mean Corpuscular Hemoglobin Concent 34 g/dL (31-37) Red Cell Distribution Width 13.1 % (11.5-14.5) Platelet Count 223 x10^3/uL (140-400) Neutrophils (%) (Auto) 83 % (31-73) Lymphocytes (%) (Auto) 13 % (24-48) Monocytes (%) (Auto) 4 % (0-9) Eosinophils (%) (Auto) 0 % (0-3) Basophils (%) (Auto) 0 % (0-3) Neutrophils # (Auto) 6.2 x10^3/uL (1.8-7.7) Lymphocytes # (Auto) 1.0 x10^3/uL (1.0-4.8) Monocytes # (Auto) 0.3 x10^3/uL (0.0-1.1) Eosinophils # (Auto) 0.0 x10^3/uL (0.0-0.7) Basophils # (Auto) 0.0 x10^3/uL (0.0-0.2) Sodium Level 140 mmol/L (136-145) Potassium Level 3.9 mmol/L (3.5-5.1) Chloride Level 106 mmol/L (98-107) Carbon Dioxide Level 18 mmol/L (21-32) Anion Gap 16 (6-14) Blood Urea Nitrogen 14 mg/dL (7-20) Creatinine 0.6 mg/dL (0.6-1.0) Estimated GFR (Cockcroft-Gault) 107.6 Glucose Level 83 mg/dL (70-99) Calcium Level 8.4 mg/dL (8.5-10.1) Problem List s/p right colon will try clears and d/c WILFRID Yu MD Aug 03, 2019 13:10
--- NOTE | 2019-08-03 14:56 | PDOC2 ---
GI CONSULT Reason For Consult: cecal volvulus HPI: HPI: This is a very pleasant 48 year old female with pmh of ADHD who presents with epigastric abdominal pain since this Sunday AM while working. 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 No nausea vomiting diarrhea fever chest pain or sob. no change in dietary habits. only sx was in 2004 when she had a hemorroidectomy. she initally presented from an outside hospital and transferred here after CT showing colonic volvulus. She underwent right hemicolectomy yesterday and now reports flatus and resolution of pain patient has no complaints. PMH: PMH: Past Medical History Past Medical History adhd Past Surgical History Past Surgical History hemorroidectomy Family History Family History reviewed and denies Social History Smoke: No ALCOHOL: none Drugs: None meds ADHA meds tylenol prn advil prn Social History: Smoke: No ALCOHOL: none Drugs: None ROS: GEN: Denies fevers, chills, sweats HEENT: Denies blurred vision, sore throat CV: Denies chest pain RESP: Denies shortness of air, cough GI: Per HPI : Denies hematuria, dysuria ENDO: Denies weight changes NEURO: Denies confusion, dizziness MSK: Denies weakness, joint pain/swelling SKIN: Denies jaundice, pruritus VItals: Vitals: Vital Signs Date Time Temp Pulse Resp B/P (MAP) Pulse Ox O2 Delivery O2 Flow Rate FiO2 08/03/19 10:50 98.6 80 18 95/48 (64) 98 Room Air 98.6 08/02/19 17:53 8 Labs: Labs: Laboratory Tests Test 08/03/19 04:10 White Blood Count 7.6 x10^3/uL (4.0-11.0) Red Blood Count 3.63 x10^6/uL (3.50-5.40) Hemoglobin 11.7 g/dL (12.0-15.5) Hematocrit 34.3 % (36.0-47.0) Mean Corpuscular Volume 95 fL (79-100) Mean Corpuscular Hemoglobin 32 pg (25-35) Mean Corpuscular Hemoglobin Concent 34 g/dL (31-37) Red Cell Distribution Width 13.1 % (11.5-14.5) Platelet Count 223 x10^3/uL (140-400) Neutrophils (%) (Auto) 83 % (31-73) Lymphocytes (%) (Auto) 13 % (24-48) Monocytes (%) (Auto) 4 % (0-9) Eosinophils (%) (Auto) 0 % (0-3) Basophils (%) (Auto) 0 % (0-3) Neutrophils # (Auto) 6.2 x10^3/uL (1.8-7.7) Lymphocytes # (Auto) 1.0 x10^3/uL (1.0-4.8) Monocytes # (Auto) 0.3 x10^3/uL (0.0-1.1) Eosinophils # (Auto) 0.0 x10^3/uL (0.0-0.7) Basophils # (Auto) 0.0 x10^3/uL (0.0-0.2) Sodium Level 140 mmol/L (136-145) Potassium Level 3.9 mmol/L (3.5-5.1) Chloride Level 106 mmol/L (98-107) Carbon Dioxide Level 18 mmol/L (21-32) Anion Gap 16 (6-14) Blood Urea Nitrogen 14 mg/dL (7-20) Creatinine 0.6 mg/dL (0.6-1.0) Estimated GFR (Cockcroft-Gault) 107.6 Glucose Level 83 mg/dL (70-99) Calcium Level 8.4 mg/dL (8.5-10.1) Imaging: Imaging: : 1970 LOCATION: [address] [place] [address] AGE: 48 SEX: F EXAM STATUS: ADM IN ORD. PHYSICIAN: WILFRID VILLEDA MD REASON: POST OP COLON RESECTION, XRAY TAKEN IN OR PROCEDURE: KUB One view lower abdomen pelvis 5:16 PM HISTORY: Postop colon resection Portable supine AP view abdomen pelvis There is air within multiple loops of bowel. There is some extraluminal air inferiorly and laterally in the pelvis. There is a suture line seen in the left hemipelvis. There is no unexpected radiopaque foreign body identified. IMPRESSION: 1. Nonspecific bowel gas pattern. 2. Air which could be intraperitoneal or retroperitoneal is likely postsurgical. Electronically signed by: Toi Minaya III, MD (08/02/2019 5:50 PM) [id number] PE: General: Alert, Oriented X3, Cooperative, No acute distress Abdomen: Soft, No tenderness A/P: A/P: A 1) Cecal volvulus- s/p rigth hemicolectomy 2) Right sided pain P 1) Post op plans per surgery 2) Screening colon oncle cleared by surgery and COVID crisis abates FAISAL RIZO MD Aug 03, 2019 14:56
[2019-08-03 15:59] VITALS: BP 110/70
[2019-08-03] MEDS: IV NORMAL SALINE 1000ML BAG 1,000 ML IV SCH (17:26)
[2019-08-03 19:00] VITALS: BP 103/68
[2019-08-03 23:00] VITALS: BP 98/51
[2019-08-04] MEDS: MORPHINE SULFATE/PF 30 ML IV PRN (01:46)
[2019-08-04 03:00] VITALS: BP 97/61
[2019-08-04 05:21] LABS: BASO % 1 % (0-3); EOS # 0.1 x10^3/uL (0.0-0.7); EOS % 1 % (0-3); HEMATOCRIT 30.9 % (36.0-47.0); HEMOGLOBIN 10.7 g/dL (12.0-15.5); LYMPH # 1.6 x10^3/uL (1.0-4.8); LYMPH % 29 % (24-48); MEAN CORPUSCULAR HEMOGLOBIN 33 pg (25-35); MEAN CORPUSCULAR HGB CONC 35 g/dL (31-37); MEAN CORPUSCULAR VOLUME 95 fL (79-100); MONO # 0.3 x10^3/uL (0.0-1.1); MONO % 6 % (0-9); NEUT # 3.5 x10^3/uL (1.8-7.7); NEUT % 64 % (31-73); PLATELET COUNT 201 x10^3/uL (140-400); RED BLOOD COUNT 3.25 x10^6/uL (3.50-5.40); WHITE BLOOD COUNT 5.5 x10^3/uL (4.0-11.0)
[2019-08-04] MEDS: IV RINGERS,LACTATED 1000ML 1,000 ML IV SCH (05:30)
[2019-08-04] MEDS: ENOXAPARIN 40 MG/0.4 ML SYRINGE. SQ SCH (05:31)
[2019-08-04 05:48] LABS: CREATININE 0.6 mg/dL (0.6-1.0); GFR 107.6; POTASSIUM 3.8 mmol/L (3.5-5.1)
[2019-08-04 07:50] VITALS: BP 96/68
--- NOTE | 2019-08-04 09:04 | PDOC ---
Subjective: Subjective: Feels better. Tolerating clears, belching, flatus. No stool "but it's coming." Objective: Vital Signs: Vital Signs Date Time Temp Pulse Resp B/P (MAP) Pulse Ox O2 Delivery O2 Flow Rate FiO2 08/04/19 08:04 Room Air 8.0 08/04/19 07:50 98.0 64 18 96/68 (77) 98 98.0 Labs: Laboratory Tests Test 08/04/19 04:15 White Blood Count 5.5 x10^3/uL Red Blood Count 3.25 x10^6/uL Hemoglobin 10.7 g/dL Hematocrit 30.9 % Mean Corpuscular Volume 95 fL Mean Corpuscular Hemoglobin 33 pg Mean Corpuscular Hemoglobin Concent 35 g/dL Red Cell Distribution Width 13.0 % Platelet Count 201 x10^3/uL Neutrophils (%) (Auto) 64 % Lymphocytes (%) (Auto) 29 % Monocytes (%) (Auto) 6 % Eosinophils (%) (Auto) 1 % Basophils (%) (Auto) 1 % Neutrophils # (Auto) 3.5 x10^3/uL Lymphocytes # (Auto) 1.6 x10^3/uL Monocytes # (Auto) 0.3 x10^3/uL Eosinophils # (Auto) 0.1 x10^3/uL Basophils # (Auto) 0.0 x10^3/uL Sodium Level 141 mmol/L Potassium Level 3.8 mmol/L Chloride Level 107 mmol/L Carbon Dioxide Level 28 mmol/L Anion Gap 6 Blood Urea Nitrogen 8 mg/dL Creatinine 0.6 mg/dL Estimated GFR (Cockcroft-Gault) 107.6 Glucose Level 101 mg/dL Calcium Level 8.0 mg/dL PE: GEN: NAD - walking around room LUNGS: room air HEART: RRR per chart NEURO/PSYCH: A & O 3 A/P: Cecal volvulus s/p ileocolic resection Normocytic anemia CRC screen - none -- Continue per surgery. Outpt screening colonoscopy. Hemodynamically unstable?: No Is patient in severe pain?: No Is NPO status required?: No JOSE PERALTA Aug 04, 2019 09:04
[2019-08-04] MEDS: AMPHETAMINE PO SCH (09:12)
[2019-08-04 11:23] VITALS: BP 108/62
--- NOTE | 2019-08-04 11:33 | PDOC ---
SURGICAL PROGRESS NOTE Subjective Pt without c/o except some RLQ incisional pain, no N/V, passing flatus, satya clears Vital Signs Vital Signs Date Time Temp Pulse Resp B/P (MAP) Pulse Ox O2 Delivery O2 Flow Rate FiO2 08/04/19 11:23 98.0 66 18 108/62 (77) 100 Room Air 98.0 08/04/19 08:04 8.0 I&O Intake and Output 08/04/19 07:00 Intake Total 3200 ml Balance 3200 ml Intake Oral 1200 ml IV Total 2000 ml # Voids 5 General: Alert, Oriented X3, Cooperative, No acute distress Abdomen: Soft, Other (dressing intact) Labs Laboratory Tests Test 08/03/19 04:10 08/04/19 04:15 White Blood Count 7.6 x10^3/uL (4.0-11.0) 5.5 x10^3/uL (4.0-11.0) Red Blood Count 3.63 x10^6/uL (3.50-5.40) 3.25 x10^6/uL (3.50-5.40) Hemoglobin 11.7 g/dL (12.0-15.5) 10.7 g/dL (12.0-15.5) Hematocrit 34.3 % (36.0-47.0) 30.9 % (36.0-47.0) Mean Corpuscular Volume 95 fL (79-100) 95 fL (79-100) Mean Corpuscular Hemoglobin 32 pg (25-35) 33 pg (25-35) Mean Corpuscular Hemoglobin Concent 34 g/dL (31-37) 35 g/dL (31-37) Red Cell Distribution Width 13.1 % (11.5-14.5) 13.0 % (11.5-14.5) Platelet Count 223 x10^3/uL (140-400) 201 x10^3/uL (140-400) Neutrophils (%) (Auto) 83 % (31-73) 64 % (31-73) Lymphocytes (%) (Auto) 13 % (24-48) 29 % (24-48) Monocytes (%) (Auto) 4 % (0-9) 6 % (0-9) Eosinophils (%) (Auto) 0 % (0-3) 1 % (0-3) Basophils (%) (Auto) 0 % (0-3) 1 % (0-3) Neutrophils # (Auto) 6.2 x10^3/uL (1.8-7.7) 3.5 x10^3/uL (1.8-7.7) Lymphocytes # (Auto) 1.0 x10^3/uL (1.0-4.8) 1.6 x10^3/uL (1.0-4.8) Monocytes # (Auto) 0.3 x10^3/uL (0.0-1.1) 0.3 x10^3/uL (0.0-1.1) Eosinophils # (Auto) 0.0 x10^3/uL (0.0-0.7) 0.1 x10^3/uL (0.0-0.7) Basophils # (Auto) 0.0 x10^3/uL (0.0-0.2) 0.0 x10^3/uL (0.0-0.2) Sodium Level 140 mmol/L (136-145) 141 mmol/L (136-145) Potassium Level 3.9 mmol/L (3.5-5.1) 3.8 mmol/L (3.5-5.1) Chloride Level 106 mmol/L (98-107) 107 mmol/L (98-107) Carbon Dioxide Level 18 mmol/L (21-32) 28 mmol/L (21-32) Anion Gap 16 (6-14) 6 (6-14) Blood Urea Nitrogen 14 mg/dL (7-20) 8 mg/dL (7-20) Creatinine 0.6 mg/dL (0.6-1.0) 0.6 mg/dL (0.6-1.0) Estimated GFR (Cockcroft-Gault) 107.6 107.6 Glucose Level 83 mg/dL (70-99) 101 mg/dL (70-99) Calcium Level 8.4 mg/dL (8.5-10.1) 8.0 mg/dL (8.5-10.1) Iron Level 46 ug/dL (50-170) Total Iron Binding Capacity 262 ug/dL (250-450) Iron Saturation 18 % (15-34) Vitamin B12 Level 499 pg/mL (247-911) Laboratory Tests Test 08/04/19 04:15 White Blood Count 5.5 x10^3/uL (4.0-11.0) Red Blood Count 3.25 x10^6/uL (3.50-5.40) Hemoglobin 10.7 g/dL (12.0-15.5) Hematocrit 30.9 % (36.0-47.0) Mean Corpuscular Volume 95 fL (79-100) Mean Corpuscular Hemoglobin 33 pg (25-35) Mean Corpuscular Hemoglobin Concent 35 g/dL (31-37) Red Cell Distribution Width 13.0 % (11.5-14.5) Platelet Count 201 x10^3/uL (140-400) Neutrophils (%) (Auto) 64 % (31-73) Lymphocytes (%) (Auto) 29 % (24-48) Monocytes (%) (Auto) 6 % (0-9) Eosinophils (%) (Auto) 1 % (0-3) Basophils (%) (Auto) 1 % (0-3) Neutrophils # (Auto) 3.5 x10^3/uL (1.8-7.7) Lymphocytes # (Auto) 1.6 x10^3/uL (1.0-4.8) Monocytes # (Auto) 0.3 x10^3/uL (0.0-1.1) Eosinophils # (Auto) 0.1 x10^3/uL (0.0-0.7) Basophils # (Auto) 0.0 x10^3/uL (0.0-0.2) Sodium Level 141 mmol/L (136-145) Potassium Level 3.8 mmol/L (3.5-5.1) Chloride Level 107 mmol/L (98-107) Carbon Dioxide Level 28 mmol/L (21-32) Anion Gap 6 (6-14) Blood Urea Nitrogen 8 mg/dL (7-20) Creatinine 0.6 mg/dL (0.6-1.0) Estimated GFR (Cockcroft-Gault) 107.6 Glucose Level 101 mg/dL (70-99) Calcium Level 8.0 mg/dL (8.5-10.1) Iron Level 46 ug/dL (50-170) Total Iron Binding Capacity 262 ug/dL (250-450) Iron Saturation 18 % (15-34) Vitamin B12 Level 499 pg/mL (247-911) Problem List s/p lap right colon ADAT PO pain meds, possible d/c in AM WILFRID VILLEDA MD Aug 04, 2019 11:33
[2019-08-04] MEDS: DOCUSATE SODIUM 100 MG CAPSULE. PO SCH (11:46)
--- NOTE | 2019-08-04 11:50 | NUR ---
Patient took PRN dose of docusate this am after breakfast, so we held the 1200 newly scheduled dose. Will assess later for need for next dose.
--- NOTE | 2019-08-04 12:31 | PDOC ---
[facility] PROGRESS NOTE Chief Complaint Chief Complaint Status post ileocecal resection 2 days ago Colonic Volvulus pod # 1 ADHD Hypokalemia History of Present Illness History of Present Illness 08/04/2019 Patient seen and examined Her wounds are clean dry and intact She was seen by surgery this morning they plan to advance her diet Hope to discharge tomorrow if stable Vitals/I&O Vitals/I&O: Vital Signs Date Time Temp Pulse Resp B/P (MAP) Pulse Ox O2 Delivery O2 Flow Rate FiO2 08/04/19 11:23 98.0 66 18 108/62 (77) 100 Room Air 98.0 08/04/19 08:04 8.0 I & O 08/03/19 08/03/19 08/04/19 14:59 22:59 06:59 Intake Total 720 ml 1000 ml 1480 ml Balance 720 ml 1000 ml 1480 ml Physical Exam General: Alert, Oriented X3, Cooperative, No acute distress Lungs: Clear Abdomen: Soft, Other (dressing intact) Extremities: No clubbing, No cyanosis Skin: No rashes, No breakdown Labs Labs: Laboratory Tests Test 08/04/19 04:15 White Blood Count 5.5 x10^3/uL (4.0-11.0) Red Blood Count 3.25 x10^6/uL (3.50-5.40) Hemoglobin 10.7 g/dL (12.0-15.5) Hematocrit 30.9 % (36.0-47.0) Mean Corpuscular Volume 95 fL (79-100) Mean Corpuscular Hemoglobin 33 pg (25-35) Mean Corpuscular Hemoglobin Concent 35 g/dL (31-37) Red Cell Distribution Width 13.0 % (11.5-14.5) Platelet Count 201 x10^3/uL (140-400) Neutrophils (%) (Auto) 64 % (31-73) Lymphocytes (%) (Auto) 29 % (24-48) Monocytes (%) (Auto) 6 % (0-9) Eosinophils (%) (Auto) 1 % (0-3) Basophils (%) (Auto) 1 % (0-3) Neutrophils # (Auto) 3.5 x10^3/uL (1.8-7.7) Lymphocytes # (Auto) 1.6 x10^3/uL (1.0-4.8) Monocytes # (Auto) 0.3 x10^3/uL (0.0-1.1) Eosinophils # (Auto) 0.1 x10^3/uL (0.0-0.7) Basophils # (Auto) 0.0 x10^3/uL (0.0-0.2) Sodium Level 141 mmol/L (136-145) Potassium Level 3.8 mmol/L (3.5-5.1) Chloride Level 107 mmol/L (98-107) Carbon Dioxide Level 28 mmol/L (21-32) Anion Gap 6 (6-14) Blood Urea Nitrogen 8 mg/dL (7-20) Creatinine 0.6 mg/dL (0.6-1.0) Estimated GFR (Cockcroft-Gault) 107.6 Glucose Level 101 mg/dL (70-99) Calcium Level 8.0 mg/dL (8.5-10.1) Iron Level 46 ug/dL (50-170) Total Iron Binding Capacity 262 ug/dL (250-450) Iron Saturation 18 % (15-34) Vitamin B12 Level 499 pg/mL (247-911) Assessment and Plan Assessmemt and Plan s/p lap right colon (ileocecal resection) Plan Advance diet as tolerated Hope to discharge in a.m. When necessary narcotics Home meds DVT prophylaxis Full code Comment Review of Relevant I have reviewed the following items karson (where applicable) has been applied. Hemodynamically unstable?: No Is patient in severe pain?: No Is NPO status required?: No JAYSON JONES III DO Aug 04, 2019 12:31
--- NOTE | 2019-08-04 12:41 | NUR ---
SW following. Discussed with RN, pt from home with . Diet being advanced, possible discharge tomorrow (08/05/2019). SW will continue to follow.
[2019-08-04] MEDS: HYDROcodone/APAP 5/325MG 1 TAB TABLET PO PRN ×4 (13:10→22:26)
[2019-08-04 15:28] VITALS: BP 110/71
[2019-08-04] MEDS: IV NORMAL SALINE 1000ML BAG 1,000 ML IV SCH (16:37)
[2019-08-04 19:00] VITALS: BP 107/70
--- NOTE | 2019-08-04 20:15 | NUR ---
PATIENT AMBULATES AROUND SQUARE, ASSISTED PER THIS SOUND MIXER, TOLERATES WELL
[2019-08-04 23:00] VITALS: BP 108/80
[2019-08-05 03:00] VITALS: BP 108/68
[2019-08-05] MEDS: HYDROcodone/APAP 5/325MG 1 TAB TABLET PO PRN ×3 (03:13→12:48)
--- NOTE | 2019-08-05 04:00 | NUR ---
PT REPORTS TO HAVE HAD A BM, NOT SEEN PER THIS WELDER/INSTALLER.
[2019-08-05] MEDS: ENOXAPARIN 40 MG/0.4 ML SYRINGE. SQ SCH (05:36)
[2019-08-05 07:50] VITALS: BP 98/62
[2019-08-05] MEDS: AMPHETAMINE PO SCH (08:20)
[2019-08-05] MEDS: DOCUSATE SODIUM 100 MG CAPSULE. PO SCH (08:21)
--- NOTE | 2019-08-05 09:49 | PDOC ---
Objective: Objective: Reviewed chart - stool reported. Vital Signs: Vital Signs Date Time Temp Pulse Resp B/P (MAP) Pulse Ox O2 Delivery O2 Flow Rate FiO2 08/05/19 08:21 Room Air 08/05/19 07:50 98.1 58 16 98/62 (74) 98 98.1 08/04/19 18:09 8.0 PE: GEN: in restroom - says she's doing better NEURO/PSYCH: A & O 3 A/P: Cecal volvulus s/p ileocolic resection CRC screen - none -- DC per surgery/primary. Outpt screening colonoscopy - our office will call to arrange. Hemodynamically unstable?: No Is patient in severe pain?: No Is NPO status required?: No JOSE PERALTA Aug 05, 2019 09:49
--- NOTE | 2019-08-05 10:00 | NUR ---
Doing well, still sore at incision site. Ambulates in room with steady gait. Instructed how to splint abdomen with pillow. Tolerating diet well. Cont. monitor.
--- NOTE | 2019-08-05 10:31 | NUR ---
SW following. Discussed with RN, pt from home with , regular diet. RN advised no SW needs, anticipates discharge home today with self care. SW will continue to follow should any discharge planning needs arise.
[2019-08-05 11:39] VITALS: BP 105/63
[2019-08-05 15:26] VITALS: BP 109/79
[2019-08-05] MEDS ORDERED: ONDA4TAB7 PO (16:09)
[2019-08-05] MEDS ORDERED: HYDR-2761 PO (16:09)
--- NOTE | 2019-08-05 16:10 | NUR ---
Discharge instruction given with prescriptions. Answered questions and concerns. Verbalized understanding. Pt discharge home accompanied by daughter.
--- NOTE | 2019-08-05 16:17 | PDOC ---
SURGICAL PROGRESS NOTE Subjective Pt without c/o, satya diet, passing stools Vital Signs Vital Signs Date Time Temp Pulse Resp B/P (MAP) Pulse Ox O2 Delivery O2 Flow Rate FiO2 08/05/19 15:26 98.0 57 16 109/79 (89) 99 Room Air 98.0 08/04/19 18:09 8.0 I&O Intake and Output 08/05/19 07:00 Intake Total 720 ml Output Total 75 ml Balance 645 ml Intake Oral 720 ml Output Urine Total 75 ml # Voids 3 General: Alert, Oriented X3, Cooperative, No acute distress Abdomen: Soft, No tenderness Labs Laboratory Tests Test 08/04/19 04:15 White Blood Count 5.5 x10^3/uL (4.0-11.0) Red Blood Count 3.25 x10^6/uL (3.50-5.40) Hemoglobin 10.7 g/dL (12.0-15.5) Hematocrit 30.9 % (36.0-47.0) Mean Corpuscular Volume 95 fL (79-100) Mean Corpuscular Hemoglobin 33 pg (25-35) Mean Corpuscular Hemoglobin Concent 35 g/dL (31-37) Red Cell Distribution Width 13.0 % (11.5-14.5) Platelet Count 201 x10^3/uL (140-400) Neutrophils (%) (Auto) 64 % (31-73) Lymphocytes (%) (Auto) 29 % (24-48) Monocytes (%) (Auto) 6 % (0-9) Eosinophils (%) (Auto) 1 % (0-3) Basophils (%) (Auto) 1 % (0-3) Neutrophils # (Auto) 3.5 x10^3/uL (1.8-7.7) Lymphocytes # (Auto) 1.6 x10^3/uL (1.0-4.8) Monocytes # (Auto) 0.3 x10^3/uL (0.0-1.1) Eosinophils # (Auto) 0.1 x10^3/uL (0.0-0.7) Basophils # (Auto) 0.0 x10^3/uL (0.0-0.2) Sodium Level 141 mmol/L (136-145) Potassium Level 3.8 mmol/L (3.5-5.1) Chloride Level 107 mmol/L (98-107) Carbon Dioxide Level 28 mmol/L (21-32) Anion Gap 6 (6-14) Blood Urea Nitrogen 8 mg/dL (7-20) Creatinine 0.6 mg/dL (0.6-1.0) Estimated GFR (Cockcroft-Gault) 107.6 Glucose Level 101 mg/dL (70-99) Calcium Level 8.0 mg/dL (8.5-10.1) Iron Level 46 ug/dL (50-170) Total Iron Binding Capacity 262 ug/dL (250-450) Iron Saturation 18 % (15-34) Vitamin B12 Level 499 pg/mL (247-911) Problem List s/p right colectomy OK to d/c, doing well f/u in two weeks. WILFRID VILLEDA MD Aug 05, 2019 16:17
--- NOTE | 2019-08-05 16:20 | PDOC3 ---
Discharge Summary Visit Information Date of Admission: Aug 01, 2019 Date of Discharge: Aug 05, 2019 Admitting Diagnosis Comment: Colonic Volvulus ADHD Final Diagnosis Status post ileocecal resection 3 days ago Colonic Volvulus pod # 3 ADHD Hypokalemia replaced Brief Hospital Course Allergies Allergies Coded Allergies Type Severity Reaction Last Updated Verified No Known Drug Allergies 08/01/19 No Vital Signs Vital Signs Date Time Temp Pulse Resp B/P (MAP) Pulse Ox O2 Delivery O2 Flow Rate FiO2 08/05/19 15:26 98.0 57 16 109/79 (89) 99 Room Air 98.0 08/04/19 18:09 8.0 Lab Results Laboratory Tests Test 08/04/19 04:15 White Blood Count 5.5 x10^3/uL (4.0-11.0) Red Blood Count 3.25 x10^6/uL (3.50-5.40) Hemoglobin 10.7 g/dL (12.0-15.5) Hematocrit 30.9 % (36.0-47.0) Mean Corpuscular Volume 95 fL (79-100) Mean Corpuscular Hemoglobin 33 pg (25-35) Mean Corpuscular Hemoglobin Concent 35 g/dL (31-37) Red Cell Distribution Width 13.0 % (11.5-14.5) Platelet Count 201 x10^3/uL (140-400) Neutrophils (%) (Auto) 64 % (31-73) Lymphocytes (%) (Auto) 29 % (24-48) Monocytes (%) (Auto) 6 % (0-9) Eosinophils (%) (Auto) 1 % (0-3) Basophils (%) (Auto) 1 % (0-3) Neutrophils # (Auto) 3.5 x10^3/uL (1.8-7.7) Lymphocytes # (Auto) 1.6 x10^3/uL (1.0-4.8) Monocytes # (Auto) 0.3 x10^3/uL (0.0-1.1) Eosinophils # (Auto) 0.1 x10^3/uL (0.0-0.7) Basophils # (Auto) 0.0 x10^3/uL (0.0-0.2) Sodium Level 141 mmol/L (136-145) Potassium Level 3.8 mmol/L (3.5-5.1) Chloride Level 107 mmol/L (98-107) Carbon Dioxide Level 28 mmol/L (21-32) Anion Gap 6 (6-14) Blood Urea Nitrogen 8 mg/dL (7-20) Creatinine 0.6 mg/dL (0.6-1.0) Estimated GFR (Cockcroft-Gault) 107.6 Glucose Level 101 mg/dL (70-99) Calcium Level 8.0 mg/dL (8.5-10.1) Iron Level 46 ug/dL (50-170) Total Iron Binding Capacity 262 ug/dL (250-450) Iron Saturation 18 % (15-34) Vitamin B12 Level 499 pg/mL (247-911) Brief Hospital Course History and Physical Date of Admission Date of Admission DATE: 08/01/19 TIME: 18:11 Identification/Chief Complaint Chief Complaint abdominal pain Problems: (1) Colonic volvulus Source Source: Patient History of Present Illness History of Present Illness This is a very pleasant 48 year old CF with pmh of ADHD who presents with epigastric abdominal pain since this AM while working. 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 No nausea vomiting diarrhea fever chest pain or sob. no change in dietary habits. only sx was in 2004 when she had a hemorroidectomy. she initally presented from an outside hospital and transferred here after CT showing colonic volvulus. Dr. Villeda aware of patient. patient has no complaints. Patient was admitted to the medical floor where she was evaluated by GI and surgery. She presented from an outside hospital and transferred here after the CT showed a colonic volvulus. She underwent a right hemicolectomy as described below on this report. She recovered well from the surgical intervention. From the surgical and GI standpoint of view the patient was deemed appropriate for dismissal on today's date. Today was the first day assessing the patient but she is seen in no acute distress during my interview this morning. Guest Relations Associate signed off on the case and she will be following up in the outpatient setting with Dr. Gavin, all of her concerns were addressed to the best of my abilities she was hemodynamically stable upon discharge. Signs and symptoms of concern were discussed prior to dismissal and she acknowledged understanding of all instructions Assessment Assessment OPERATIVE NOTE Date: Date: Aug 02, 2019 Pre-Op Diagnosis: Cecal volvulus Post-Op Diagnosis: same Procedure Performed: laparoscopic ileocolic resection Surgeon: Will Villeda Anesthesia Type: GETA plus local Blood Loss: 50 Specimans Obtained: ileocolic resection Findings: mobile cecum, currently reduced but with inflamed bowel, no perforation Normal liver, gallbladder, small bowel, remaining colon, gynecologic structure, right ureter, pancreas and duodenum Complications: none Operative Note: After obtaining informed consent, patient was taken to OR, induced under GETA and prepped in the usual fashion. 5 mm port placed LLQ, suprapubic and epi gastric, all under laparoscopic guidance. Abdominal cavity was explored and noted as above. Brief terminal ileum attachments and hepatic flexure attachments were taken with ligasure. Right colon easily mobilized. Right ureter and duodenum were fully visualized and maintained without injury in this petite patient. No other abnormalities noted. Transverse incision was made in RLQ, wound retractor placed and ileocolic area was eviscerated. Side to side stapled anastomosis created with EDU 75. End was sealed with EDU 75. Mesentery taken with ligasure device. Specimen sent to pathology for evaluation. Mesentery repaired with 3 0 vicryl. Anastomosis noted to be patent, under no tension, completely viable and without leakage. Bowel returned to abdominal cavity. Peritoneum repaired with 0 vicryl. Anterior fascia repaired with 0 PDS. Pneumoperitoneum reestablished and abdominal cavity explored. Copious irrigation. No evidence of bleeding or other pathology. Ports removed without bleeding. Skin repaired with 3 0 vicryl and 4 0 monocryl. Dressing placed. Patient tolerated procedure well and sent to PACU in stable condition. All counts correct. Wound class is 3. WILFRID VILLEDA MD Discharge Information Condition at Discharge: Improved Follow Up: Weeks Disposition/Orders: D/C to Home Scheduled Ondansetron Hcl (Zofran) 4 Mg Tablet, 1 TAB PO Q6HRS for nausea, #20 Prescribed by: KARLEY PEREA MD on 08/05/19 1609 Scheduled PRN Hydrocodone Bit/Acetaminophen (Hydrocodone-Apap 5-325 ) 1 Tab Tablet, 2 TAB PO PRN Q6HRS PRN for MODERATE TO SEVERE PAIN for 3 Days, #24 Prescribed by: KARLEY PEREA MD on 08/05/19 1609 Hemodynamically unstable?: No Is patient in severe pain?: No Is NPO status required?: No KARLEY PEREA MD Aug 05, 2019 16:20
--- NOTE | 2019-08-06 11:06 | PATHOLOGY ---
[facility] Accession Number: [id number] . 01 Material submitted: . cecum - ILEOCOLIC RESECTION . 01 Clinical history: . Cecal volvulus . 02 Diagnosis: Distal ileum, cecum, appendix, and ascending colon with attached mesocolon and portion of omentum, laparoscopic ileocolic resection: - Cecal volvulus, reduced (clinical). - Fecal distention of cecum with congestion and focal attenuation of cecal mucosa and fibromuscular wall. - Serosal adhesions, cecum. - Proximal (distal ileum) and distal (ascending colon) margins of resection viable. - Fibrous obliteration of distal appendiceal lumen. - Reactive changes of mesocolic lymph nodes, focal. - Congestion of attached portion of omentum. (JPM:juan pablo; 08/05/2019) [facility] [place] 08/06/2019 1044 Local . 02 Comment: There is fecal distention of the cecum with congestion and focal attenuation of the cecal mucosa and fibromuscular wall. The cecal mucosa and fibromuscular wall do appear viable. (JPM:juan pablo; 08/05/2019) . 02 Electronically signed: . Sarthak Greene MD, Pathologist NPI- [id number] . 01 Gross description: . The specimen is received in formalin, labeled "Lolita, Renetta, ileocolic resection" and consists of a right hemicolectomy specimen with terminal ileum (7.5 cm in length and up to 1.7 cm in diameter), ascending colon and cecum (27.5 cm in length and ranging from 1.7 to 5.0 cm in diameter), mesocolic fat up to 5.8 cm and omentum (14.0 x 8.0 cm). The appendix is present measuring 4.0 cm in length and ranging from 0.3 cm (tip) to 0.8 cm (proximal aspect). The colon serosa is pink verma with creeping adhesions at the distal cecum. The proximal and distal margins are sutured together with both having a staple line. There are a few palpable lymph nodes. The terminal ileum mucosa is green camp with no gross lesions. The cecum is packed with malodorous green fecal material showing reduced/flattened folds. No polyps or gross lesions are identified. The appendix is pink-camp showing a dilated to pinpoint lumen packed with green fecal material and fibrous obliteration of the tip. The omentum reveals no gross lesions. The palpable lymph nodes measure up to 1.0 cm showing verma-camp cut surfaces. Regional Office Coordinator sections are submitted as follows: . A1: Proximal margin A2: Distal margin A3: Reduced folds cecum A4: Appendix A5: Omentum A6: Cluster of lymph nodes and bisected lymph node (SDY; 08/04/2019) . After initial microscopic examination lifeline representatives sections are submitted as follows: . A7: Distal ileum A8: Ileocecal valve A9: Cecum A10: Ascending colon (SDY; 08/05/2019) SYU/SYU 08/05/2019 1421 Local . 02 Pathologist provided ICD-10: K56.2 . 02 CPT . 869700 Specimen Comment: A courtesy copy of this report has been sent to [phone], [phone] Specimen Comment: [id number] Specimen Comment: Report sent to / DR SPAIN Performed at: 01 [facility] [address], [place], [place] [id number] MD Raymond Guardado MD Phone: [phone] Performed at: 02 [facility] [address], [place] [id number] MD Sarthak Greene MD Phone: [phone]
== END 2019-08-05 17:12 | disposition home or self-care (01) | DRG 330 ==
LOC: 4 NORTH 16:56
PROVIDERS: ADMIT Internal Medicine; ATTEND Internal Medicine
PROC: 0DTF4ZZ Resection of Right Large Intestine, Percutaneous Endoscopic Approach (ICD-10-PCS; principal; 2019-08-02 15:30)
DX: K56.2 Volvulus (principal); Q43.3 Congenital malformations of intestinal fixation; D64.9 Anemia, unspecified; E87.6 Hypokalemia; F90.9 Attention-deficit hyperactivity disorder, unspecified type; K56.7 Ileus, unspecified
CPT/HCPCS: 36415; 74018; 80048; 80053; 82607; 83540; 83550; 84132; 85025; 85027; A7015; J0330; J0694; J0696; J1100; J1650; J1885; J2250; J2405; J2704; J2710; J3010; J3480; J3490; J7030; J7120; G0378

== ENCOUNTER 2020-05-05 10:00 | Emergency (ER) | payer BC ==
[~2020-05-05] VITALS: Ht 172.7 cm; Wt 50.9 kg
[~2020-05-05 10:00] MED LIST changes: +HYDR-2761 PO; +ONDA4TAB7 PO; -cefOXitin SODIUM IV Push 2 GM VIAL. IVP ONE
[2020-05-05] MEDS ORDERED: IV NORMAL SALINE 1000ML BAG 1,000 ML IV ONE (10:30)
[2020-05-05 10:42] LABS: BILIRUBIN,URINE NEGATIVE (NEG); CLARITY,URINE CLEAR; COLOR,URINE YELLOW; NITRITE,URINE NEGATIVE (NEG); PROTEIN,URINE NEGATIVE (NEG-TRACE); UROBILINOGEN,URINE 0.2 mg/dL (0.2 mg/dL)
--- NOTE | 2020-05-05 10:42 | PHYS DOC ---
Past Medical History Smoking Status: Never Smoker General Adult EDM: Chief Complaint: ABDOMINAL PAIN HPI: HPI: Patient is a 49 year old female who presents to the ED today complaining of a mild left-sided abdominal pain described as sharp and intermittent, symptoms of been going on for "a while". Patient states the pain radiates to her flank region. Reports nausea with no vomiting. She states this morning she developed dizziness. Denies any fever. She states her left-sided abdominal pain is worse when she lays on her left side. Denies anything specifically relieving her symptoms but states when she is sitting up both abdominal pain as well as dizziness feels slightly better Review of Systems: Review of Systems: Constitutional: Denies fever or chills. [] Eyes: Denies change in visual acuity. [] HENT: Denies nasal congestion or sore throat. [] Respiratory: Denies cough or shortness of breath. [] Cardiovascular: Denies chest pain or edema. [] GI: Reports left-sided abdominal pain with nausea, denies vomiting, bloody stools or diarrhea. [] : Denies dysuria. [] Musculoskeletal: Denies back pain or joint pain. [] Integument: Denies rash. [] Neurologic: Reports dizziness. Denies headache, focal weakness or sensory changes. [] Psychiatric: Denies depression or anxiety. [] Heart Score: Risk Factors: Risk Factors: DM, Current or recent (<one month) smoker, HTN, HLP, family history of CAD, obesity. Risk Scores: Score 0 - 3: 2.5% MACE over next 6 weeks - Discharge Home Score 4 - 6: 20.3% MACE over next 6 weeks - Admit for Clinical Observation Score 7 - 10: 72.7% MACE over next 6 weeks - Early Invasive Strategies Current Medications: Current Medications Medications (Trade) Dose Ordered Sig/Donna Start Time Stop Time Status Last Admin Dose Admin Famotidine (Pepcid Vial) 20 mg 1X ONCE 05/05/20 11:00 05/05/20 11:01 Ondansetron HCl (Zofran) 4 mg 1X ONCE 05/05/20 11:00 05/05/20 11:01 Sodium Chloride 1,000 ml @ 1,000 mls/hr 1X ONCE 05/05/20 10:30 05/05/20 11:29 Allergies: Allergies: Allergies Coded Allergies Type Severity Reaction Last Updated Verified No Known Drug Allergies 08/01/19 No Physical Exam: PE: Constitutional: Well developed, well nourished, no acute distress, non-toxic appearance. [] HENT: Normocephalic, atraumatic, bilateral external ears normal, oropharynx moist, no oral exudates, nose normal. [] Eyes: PERRLA, EOMI, conjunctiva normal, no discharge. [] Neck: Normal range of motion, no tenderness, supple, no stridor. [] Cardiovascular:Heart rate regular rhythm, no murmur [] Lungs & Thorax: Bilateral breath sounds clear to auscultation [] Abdomen: Bowel sounds normal, soft, tenderness on palpation of the left upper quadrant, no right lower quadrant or right upper quadrant tenderness, no masses, no pulsatile masses. [] Skin: Warm, dry, no erythema, no rash. [] Back: No tenderness, no CVA tenderness. [] Extremities: No tenderness, no cyanosis, no clubbing, ROM intact, no edema. [] Neurologic: Alert and oriented X 3, normal motor function, normal sensory function, no focal deficits noted. Cranial nerves II through XII intact Psychologic: Affect normal, judgement normal, mood normal. [] Current Patient Data: Labs: Laboratory Tests Test 05/05/20 10:12 POC Urine HCG, Qualitative Hcg negative (Negative) EKG: EK interpreted by Dr. Dsouza sinus rhythm HR 61 no STEMI[] Radiology/Procedures: Radiology/Procedures: []PROCEDURE: CT ABD PELV W/ IV CONTRST ONLY PQRS Compliance Statement: One or more of the following individualized dose reduction techniques were utilized for this examination: 1. Automated exposure control 2. Adjustment of the mA and/or kV according to patient size 3. Use of iterative reconstruction technique Exam performed: CT scan of the abdomen and pelvis with contrast Clinical Indication:Left-sided abdominal pain Date of Service:05/05/2020. Comparison: None available Technique: Contiguous helical acquisitions are obtained from the lung bases to the pelvis during intravenous administration of [75 cc of Omnipaque 300.]. Sagittal and coronal reformatted images were obtained and reviewed. CT abdomen and pelvis findings: The lung bases appear essentially clear. The visualized heart is normal The liver, spleen and pancreas appears unremarkable. Gallbladder is normal Both adrenal glands and bilateral kidneys appear normal with symmetric excretion of contrast via both kidneys. Left inferior pole renal cyst. The small bowel loops appear nondilated and unremarkable. Aorta is normal in caliber. There is no retroperitoneal lymphadenopathy or mass lesions. No bowel related inflammatory stranding is noted. The urinary bladder is well distended and normal . Uterus is anteverted. No adnexal masses identified. Interrogation of bone windows demonstrates no obvious bony abnormality. Sagittal and coronal reformatted images were obtained and reviewed which demonstrate no additional findings. Impression abdomen and pelvis : 1. No acute intra-abdominal or pelvic process is detected. Electronically signed by: Fatoumata Malcolm MD (05/05/2020 12:08 PM) [id number] DICTATED and SIGNED BY: FATOUMATA MALCOLM MD DATE: 05/05/20 [id number] 0 PROCEDURE: CT HEAD WO CONTRAST CT HEAD INDICATION: Dizziness COMPARISON: None Available. Exposure: One or more of the following individualized dose reduction techniques were utilized for this examination: 1. Automated exposure control 2. Adjustment of the mA and/or kV according to patient size 3. Use of iterative reconstruction technique TECHNIQUE: 5 mm contiguous axial images were obtained from the skull base to the vertex in both bone and soft tissue algorithm. FINDINGS: Mild bilateral periventricular white matter hypodensities likely chronic small vessel ischemic disease. No evidence of acute intracranial hemorrhage. No extra-axial fluid collections. No mass effect or midline shift. Ventricular size is appropriate. Basal cisterns are patent. No fractures identified.Brock-white differentiation is preserved.Globes and orbits are within normal limits. Paranasal sinuses and mastoid air cells are clear. IMPRESSION: No acute intracranial findings. Electronically signed by: Juan Luis Stone MD (05/05/2020 11:47 AM) [id number] DICTATED and SIGNED BY: JUAN LUIS STONE MD DATE: 05/05/20 [id number] 0 PROCEDURE: PORTABLE CHEST 1V INDICATION: Reason: dizziness / Spl. Instructions: / History: COMPARISON: None. FINDINGS: Single view of chest obtained. No focal airspace consolidation. Cardiomediastinal contour unremarkable. No acute osseous abnormality. IMPRESSION: * No focal airspace consolidation or edema. Electronically signed by: Christi Keys MD (05/05/2020 10:51 AM) [id number] DICTATED and SIGNED BY: CHRISTI KEYS MD DATE: 05/05/20 [id number] 0 Course & Med Decision Making: Course & Med Decision Making Pertinent Labs and Imaging studies reviewed. (See chart for details) This is a 49-year-old female patient presented to the ED today with left-sided abdominal pain that began a while ago, and dizziness since this morning. Patient's vitals are stable NIHS is negative. CT of the head is negative, chest x-ray is negative. CT of the abdomen and pelvic is negative. Urine analysis negative for infection. CBC with no acute findings, CMP with potassium 3.2 which was replaced in the ED with 40 mEq of potassium in the Ed. patient states she feels better after being in the ED for well. She states she has been using her left flank region/abdomen to do more strenuous work than normal for her. She believes this is a muscle skeletal pain. She also states she has not been resting well as the reason she could be dizzy. She currently feels better after resting in the ED. She was discharged to home. She has good follow-up with her PCP. Simi Disclaimer: Simi Disclaimer: This electronic medical record was generated, in whole or in part, using a voice recognition dictation system. NIHSS Stroke Scale NIH Stroke Scale: NIH Stroke Scale Response (Comments) Value Level of Consciousness: 0 Alert/Responsive 0 LOC Questions: 0 Answers both correctly 0 LOC Commands: 0 Performs both tasks 0 Best Gaze: 0 Normal 0 Visual: 0 No visual loss 0 Facial Palsy: 0 Normal, symmetrical 0 Motor - Left Arm 0 No drift 0 Motor - Right Arm 0 No drift 0 Motor - Left Leg 0 No drift 0 Motor: Right Leg 0 No drift 0 Limb Ataxia: 0 Absent 0 Sensory: 0 No loss 0 Best Language: 0 Normal 0 Dysathria: 0 Normal 0 Extinction and Inattention: 0 Normal 0 Total 0 Departure Departure Impression: Primary Impression: Left upper quadrant pain Additional Impressions: Left flank pain Dizziness Hypokalemia Disposition: 01 DC HOME SELF CARE/HOMELESS Condition: STABLE Referrals: STEPHANIE SPAIN MD (PCP) Follow-up in the course of this week or next week Patient Instructions: Dizziness, [id number], Hypokalemia-Brief Additional Instructions: You were evaluated in the emergency room for abdominal pain and dizziness. Your CT of the head, CT of the abdomen and pelvic as well as chest x-ray are negative for any acute findings. Your potassium was 3.2 which is slightly low, increase your dietary potassium intake through foods like bananas. Try and rest and push some fluids today. Follow-up with your doctor in the course of this week. Come back to the ED at any point symptoms worsen. JOSS COLLIER APRN May 05, 2020 10:42
[2020-05-05 10:52] LABS: BASO % 0 % (0-3); EOS # 0.1 x10^3/uL (0.0-0.7); EOS % 3 % (0-3); HEMATOCRIT 39.2 % (36.0-47.0); HEMOGLOBIN 13.5 g/dL (12.0-15.5); LYMPH # 1.5 x10^3/uL (1.0-4.8); LYMPH % 32 % (24-48); MEAN CORPUSCULAR HEMOGLOBIN 31 pg (25-35); MEAN CORPUSCULAR HGB CONC 35 g/dL (31-37); MEAN CORPUSCULAR VOLUME 89 fL (79-100); MONO # 0.5 x10^3/uL (0.0-1.1); MONO % 10 % (0-9); NEUT # 2.6 x10^3/uL (1.8-7.7); NEUT % 56 % (31-73); PLATELET COUNT 335 x10^3/uL (140-400); RED BLOOD COUNT 4.39 x10^6/uL (3.50-5.40); RED CELL DISTRIBUTION WIDTH 16.9 % (11.5-14.5); WHITE BLOOD COUNT 4.7 x10^3/uL (4.0-11.0)
--- NOTE | 2020-05-05 10:53 | RAD ---
INDICATION: Reason: dizziness / Spl. Instructions: / History: COMPARISON: None. FINDINGS: Single view of chest obtained. No focal airspace consolidation. Cardiomediastinal contour unremarkable. No acute osseous abnormality. IMPRESSION: * No focal airspace consolidation or edema. Electronically signed by: Chet Peoples MD (05/05/2020 10:51 AM) [id number]
[2020-05-05] MEDS ORDERED: IOHEXOL 300 MG/ML 100ML VIAL. IV ONE (11:00)
[2020-05-05] MEDS ORDERED: FAMOTIDINE 20 MG/2 ML VIAL IVP ONE (11:00)
[2020-05-05] MEDS ORDERED: CONTRAST GIVEN. MC PRN (11:00)
[2020-05-05 11:01] LABS: BACTERIA,URINE 0 /HPF (0-FEW); WBC,URINE RARE /HPF (0-4)
[2020-05-05 11:10] LABS: PROTHROMBIN TIME PATIENT 11.7 SEC (11.7-14.0)
[2020-05-05 11:10] LABS: BARBITURATES NEG (NEG); BENZODIAZEPINES NEG (NEG); CANNABINOIDS NEG (NEG); COCAINE NEG (NEG); METHADONE NEG (NEG); OPIATES NEG (NEG); PHENCYCLIDINE NEG (NEG)
[2020-05-05 11:11] LABS: CREATININE 0.8 mg/dL (0.6-1.0); GFR 76.9; POTASSIUM 3.2 mmol/L (3.5-5.1)
[2020-05-05 11:11] LABS: AMPHETAMINE/METHAMPHETAMINE NEG (NEG)
[2020-05-05 11:21] LABS: ALBUMIN 4.4 g/dL (3.4-5.0); ALBUMIN/GLOBULIN RATIO 1.4 (1.0-1.7); TOTAL BILIRUBIN 0.7 mg/dL (0.2-1.0); TOTAL PROTEIN 7.6 g/dL (6.4-8.2)
--- NOTE | 2020-05-05 11:49 | RAD ---
CT HEAD INDICATION: Dizziness COMPARISON: None Available. Exposure: One or more of the following individualized dose reduction techniques were utilized for thi s examination: 1. Automated exposure control 2. Adjustment of the mA and/or kV according to patient size 3. Use of iterative reconstruction technique TECHNIQUE: 5 mm contiguous axial images were obtained from the skull base to the vertex in both bone and soft tissue algorithm. FINDINGS: Mild bilateral periventricular white matter hypodensities likely chronic small vessel ischemic diseas e. No evidence of acute intracranial hemorrhage. No extra-axial fluid collections. No mass effect or midline shift. Ventricular size is appropriate. Basal cisterns are patent. No fractures identified.Brock-white differentiation is preserved.Globes and orbits are within normal l imits. Paranasal sinuses and mastoid air cells are clear. IMPRESSION: No acute intracranial findings. Electronically signed by: Juan Luis Stone MD (05/05/2020 11:47 AM) [id number]
[2020-05-05] MEDS: ONDANSETRON PF 4 MG/2 ML VIAL. IVP ONE ×2 (11:58→12:00)
--- NOTE | 2020-05-05 12:10 | RAD ---
PQRS Compliance Statement: One or more of the following individualized dose reduction techniques were utilized for this examinat ion: 1. Automated exposure control 2. Adjustment of the mA and/or kV according to patient size 3. Use of iterative reconstruction technique Exam performed: CT scan of the abdomen and pelvis with contrast Clinical Indication:Left-sided abdominal pain Date of Service:05/05/2020. Comparison: None available Technique: Contiguous helical acquisitions are obtained from the lung bases to the pelvis during int ravenous administration of [75 cc of Omnipaque 300.]. Sagittal and coronal reformatted images were o btained and reviewed. CT abdomen and pelvis findings: The lung bases appear essentially clear. The visualized heart is normal The liver, spleen and pancreas appears unremarkable. Gallbladder is normal Both adrenal glands and bilateral kidneys appear normal with symmetric excretion of contrast via both kidneys. Left inferior pole renal cyst. The small bowel loops appear nondilated and unremarkable. Aorta is normal in calibe r. There is no retroperitoneal lymphadenopathy or mass lesions. No bowel related inflammatory strand ing is noted. The urinary bladder is well distended and normal . Uterus is anteverted. No adnexal ma sses identified. Interrogation of bone windows demonstrates no obvious bony abnormality. Sagittal and coronal reformatted images were obtained and reviewed which demonstrate no additional f indings. Impression abdomen and pelvis : 1. No acute intra-abdominal or pelvic process is detected. Electronically signed by: Fatoumata Malcolm MD (05/05/2020 12:08 PM) [id number]
[2020-05-05 12:30] VITALS: BP 145/69
[2020-05-05] MEDS ORDERED: POTASSIUM CHLORIDE 20 MEQ TABLET.ER. PO ONE (12:30)
== END 2020-05-05 12:55 | disposition home or self-care (01) ==
LOC: ER 10:00
DX: R10.12 Left upper quadrant pain (principal); R42 Dizziness and giddiness; E87.6 Hypokalemia
CPT/HCPCS: 36415; 70450; 71045; 74177; 80053; 80307; 81001; 81025; 83605; 83690; 83735; 83880; 84145; 84443; 84484; 85025; 85610; 85730; 87040; 93005; 96361; 96374; 99285; J3490; J7030; Q9967; J2405

== ENCOUNTER → 2021-01-25 | Outpatient (CLI) | payer BC ==
--- NOTE | 2021-01-25 13:25 | RAD ---
PROCEDURE: MG DIGITAL BILAT DIAGNOSTIC MAMMO WITH STAR, US BREAST LT HISTORY: The patient is 50 years old and is seen for Reason: LEFT BREAST PAIN / Spl. Instructions: / History: . COMPARISON: March 21, 2018 TECHNIQUE: CC and MLO views of both breasts were obtained. Images were processed by the [employer] computer-aided detection system. Target ultrasound of the left breast was also performed. DENSITY: The breast parenchyma is extremely dense, which could obscure a lesion on mammography. FINDINGS: Right mammogram: No developing mass, suspicious calcifications or architectural distortion. Scattere d benign-appearing calcifications predominantly skin calcifications. Left mammogram: No suspicious microcatheter dictation, mass or architectural distortion. Biopsy marke r within the left upper outer breast. Benign-appearing calcifications predominantly skin calcificatio ns. Left ultrasound: No mass or fluid collection within the region of the patient's palpable pain. Benign -appearing lymph nodes within the left axilla. IMPRESSION: No evidence of malignancy. Extremely dense breasts. No mammographic or ultrasound evidence of abnormality corresponding with patient's pain in the left b reast. Recommend clinical follow-up. Recommend return to annual screening. Recommend annual screening mammograms per [employer] guidelines. She will be due in one year. BI-RADS category 2 Benign Patient entered into a reminder system for annual screening mammogram. Electronically signed by: Buzz Negron DO (01/25/2021 1:22 PM) [id number]
== END ==
LOC: MAMMO 11:57
PROVIDERS: ATTEND Nurse Practitioner Family
DX: N64.4 Mastodynia (principal)
CPT/HCPCS: 76641; 77066; G0279; 77062